=== PATIENT | male | born 1950 | race African-American/Black ===

== ENCOUNTER 2017-06-27 20:19 | Emergency (ER) | payer MEDICARE, MEDICAID ==
[2017-06-27] MEDS ORDERED: NORMAL SALINE 1000 ML 1,000 ML IV ONE (20:46)
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
[2017-06-27 21:14] LABS: ABSOLUTE EOSINOPHILS # (AUTO) 0.1 10^3/uL (0.0-0.6); ABSOLUTE LYMPHOCYTES (AUTO) 1.2 10^3/uL (0.5-4.7); ABSOLUTE MONOCYTES (AUTO) 0.3 10^3/uL (0.1-1.4); ABSOLUTE NEUT (AUTO) 2.4 10^3/uL (1.7-8.2); BASOPHILS % (AUTO) 0.8 % (0-2); EOSINOPHILS % (AUTO) 2.6 % (0-6); HEMATOCRIT 41.6 % (37.9-51.0); HEMOGLOBIN 14.2 g/dL (13.5-17.0); LYMPHOCYTES % (AUTO) 30.3 % (13-45); MEAN CORPUSCULAR HEMOGLOBIN 32.9 pg (27.0-33.4); MEAN CORPUSCULAR HGB CONC 34.1 g/dL (32.0-36.0); MEAN CORPUSCULAR VOLUME 97 fl (80-97); MONOCYTES % (AUTO) 7.5 % (3-13); RED CELL DISTRIBUTION WIDTH 13.1 % (11.5-14.0); SEGMENTED NEUTROPHILS % (AUTO) 58.8 % (42-78); WHITE BLOOD COUNT 4.1 10^3/uL (4.0-10.5)
[2017-06-27 21:27] LABS: ALANINE AMINOTRANSFERASE 20 U/L (21-72); ALBUMIN 4.6 g/dL (3.5-5.0); ALCOHOL 247 mg/dL (NONE DETECTED); ALKALINE PHOSPHATASE 49 U/L (38-126); ANION GAP 14 (5-19); ASPARTATE AMINO TRANSFERASE 28 U/L (17-59); BILIRUBIN,DIRECT 0.2 mg/dL (0.0-0.4); BILIRUBIN,TOTAL 0.4 mg/dL (0.2-1.3); BLOOD UREA NITROGEN 12 mg/dL (7-20); CALCIUM 9.6 mg/dL (8.4-10.2); CARBON DIOXIDE 26 mmol/L (22-30); CHLORIDE 101 mmol/L (98-107); CREATININE RESULT 1.21 mg/dL (0.52-1.25); GLUCOSE 97 mg/dL (75-110); POTASSIUM 4.2 mmol/L (3.6-5.0); TOTAL PROTEIN 7.3 g/dL (6.3-8.2)
== END 2017-06-28 01:30 | disposition home or self-care (01) ==
LOC: ER 20:19
DX: F10.10 Alcohol abuse, uncomplicated (principal); R55 Syncope and collapse
CPT/HCPCS: 99283; 96360; 36415; 80307; 85025; 80053; J7030

== ENCOUNTER 2017-12-12 13:02 | Emergency (ER) | payer MEDICARE, MEDICAID ==
[2017-12-12] MEDS ORDERED: ACETAMINOPHEN 325 MG TABLET PO ONE (13:12)
[2017-12-12 13:28] VITALS: BP 168/110
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
== END 2017-12-12 14:36 | disposition home or self-care (01) ==
LOC: ER 13:02
DX: M25.562 Pain in left knee (principal); M54.2 Cervicalgia; V19.9XXA Pedal cyclist (driver) (passenger) injured in unspecified traffic accident, initial encounter; F17.210 Nicotine dependence, cigarettes, uncomplicated; I25.10 Atherosclerotic heart disease of native coronary artery without angina pectoris; I10 Essential (primary) hypertension; Z88.6 Allergy status to analgesic agent
CPT/HCPCS: 99284; 73564; 72125; L0120; A9270

== ENCOUNTER 2018-07-27 16:03 | Emergency (ER) | payer MEDICARE, MEDICAID ==
[2018-07-27 16:24] VITALS: BP 117/76
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
--- NOTE | 2018-07-27 19:45 | EKG REPORT ---
SEVERITY:- NORMAL ECG - ERROR IN QTc INTERVAL CLCULATION.qtC IS NORMAL SINUS RHYTHM : Confirmed by: Carola Gaines MD 27-Jul-2018 19:44:40
== END 2018-07-27 19:21 | disposition home or self-care (01) ==
LOC: ER 16:03
DX: R07.81 Pleurodynia (principal); I10 Essential (primary) hypertension; Z88.6 Allergy status to analgesic agent; I25.10 Atherosclerotic heart disease of native coronary artery without angina pectoris
CPT/HCPCS: 93005; 93010; 99283

== ENCOUNTER 2018-09-21 22:13 | Emergency (ER) | payer MEDICARE, MEDICAID ==
[2018-09-21 23:15] LABS: ABSOLUTE EOSINOPHILS # (AUTO) 0.2 10^3/uL (0.0-0.6); ABSOLUTE LYMPHOCYTES (AUTO) 0.8 10^3/uL (0.5-4.7); ABSOLUTE MONOCYTES (AUTO) 0.6 10^3/uL (0.1-1.4); ABSOLUTE NEUT (AUTO) 2.7 10^3/uL (1.7-8.2); BASOPHILS % (AUTO) 0.7 % (0-2); EOSINOPHILS % (AUTO) 4.6 % (0-6); HEMATOCRIT 40.9 % (37.9-51.0); HEMOGLOBIN 13.9 g/dL (13.5-17.0); MEAN CORPUSCULAR HEMOGLOBIN 33.4 pg (27.0-33.4); MEAN CORPUSCULAR HGB CONC 34.1 g/dL (32.0-36.0); MEAN CORPUSCULAR VOLUME 98 fl (80-97); PLATELET COUNT 245 10^3/uL (150-450); RED BLOOD COUNT 4.17 10^6/uL (4.35-5.55); RED CELL DISTRIBUTION WIDTH 13.7 % (11.5-14.0); SEGMENTED NEUTROPHILS % (AUTO) 62.7 % (42-78); TOTAL CELLS COUNTED % (AUTO) 100 %; WHITE BLOOD COUNT 4.4 10^3/uL (4.0-10.5)
[2018-09-21 23:26] LABS: APPEARANCE,URINE CLEAR; BILIRUBIN,URINE NEGATIVE (NEGATIVE); COLOR,URINE STRAW; GLUCOSE, URINE NEGATIVE (NEGATIVE); KETONES,URINE NEGATIVE (NEGATIVE); LEUKOCYTE ESTERASE,URINE NEGATIVE (NEGATIVE); NITRITE,URINE NEGATIVE (NEGATIVE); PROTEIN,URINE NEGATIVE (NEGATIVE); URINE SPECIFIC GRAVITY 1.002; UROBILINOGEN,URINE NEGATIVE mg/dL (<2.0)
[2018-09-21 23:31] LABS: ALANINE AMINOTRANSFERASE 136 U/L (21-72); ALBUMIN 4.6 g/dL (3.5-5.0); ALKALINE PHOSPHATASE 71 U/L (38-126); ANION GAP 14 (5-19); ASPARTATE AMINO TRANSFERASE 228 U/L (17-59); BILIRUBIN,DIRECT 0.2 mg/dL (0.0-0.4); BILIRUBIN,TOTAL 0.4 mg/dL (0.2-1.3); BLOOD UREA NITROGEN 9 mg/dL (7-20); CALCIUM 9.5 mg/dL (8.4-10.2); CARBON DIOXIDE 26 mmol/L (22-30); CHLORIDE 99 mmol/L (98-107); GLUCOSE 89 mg/dL (75-110); LIPASE 115.6 U/L (23-300); POTASSIUM 4.1 mmol/L (3.6-5.0); SODIUM 138.6 mmol/L (137-145); TOTAL PROTEIN 7.9 g/dL (6.3-8.2)
[2018-09-22] MEDS ORDERED: LIDOCAINE 5% (700 MG) TRANSDERMAL ADH..PATCH TP ONE (00:29)
[2018-09-22] MEDS ORDERED: MORPHINE SULFATE 10 MG/ML INJ IM ONE (00:29)
--- NOTE | 2018-09-22 00:36 | ER Document Report ---
ED General - General Chief Complaint: Flank Pain Stated Complaint: FLANK PAIN Time Seen by Provider: 09/21/18 23:40 Mode of Arrival: Medic Information source: Patient, Emergency Med Personnel, [facility] Records Notes: 67-year-old male presents via EMS with complaint of left hip and left low back pain that has been ongoing for 3 months. Patient describes the pain as throbbing, aching and worse with laying and sitting down. Patient states that he often rides a bike and walks and reports that this improves the pain. Patient denies any headache, chest pain, nausea, vomiting, abdominal pain. He denies any recent injury, fall. He has tried [id number] pain medications without relief. He denies leg weakness, saddle anesthesia, history of IV drug abuse, fever. TRAVEL OUTSIDE OF THE [place] IN LAST 30 DAYS: No - HPI Onset: Other Onset/Duration: Intermittent Quality of pain: Throbbing Severity: Mild Associated symptoms: denies: Chest pain, Nonproductive cough, Productive cough, Headache, Hurts to breath, Nausea, Vomiting, Shortness of breath, Sweating Exacerbated by: Supine, Sitting Relieved by: Other - Moving, riding his bike Similar symptoms previously: Yes Recently seen / treated by doctor: Yes - Related Data Allergies/Adverse Reactions: aspirin [Aspirin] Allergy (Intermediate, Verified 09/21/18 22:16) Hives iodine [Iodine] Allergy (Verified 09/21/18 22:16) Past Medical History - General Information source: Patient, [facility] Records - Social History Smoking Status: Never Smoker Chew tobacco use (# tins/day): No Frequency of alcohol use: Social Drug Abuse: None Lives with: Alone Family History: Reviewed & Not Pertinent Patient has suicidal ideation: No Patient has homicidal ideation: No - Past Medical History Cardiac Medical History: Reports: Hx Coronary Artery Disease, Hx Hypercholesterolemia, Hx Hypertension Denies: Hx Heart Attack Pulmonary Medical History: Denies: Hx Asthma, Hx Bronchitis, Hx COPD, Hx Pneumonia Neurological Medical History: Reports: Hx Seizures - Possibly Renal/ Medical History: Denies: Hx Peritoneal Dialysis GI Medical History: Reports: Hx Gastroesophageal Reflux Disease Musculoskeletal Medical History: Reports Hx Arthritis Past Surgical History: Reports: Hx Orthopedic Surgery - Immunizations Hx Diphtheria, Pertussis, Tetanus Vaccination: Yes Review of Systems - Review of Systems Notes: REVIEW OF SYSTEMS: CONSTITUTIONAL : Denies fever, chills, or sweats. Denies recent illness. Denies weight loss, recent hospitalizations. EENT: Denies visual changes, eye pain. Denies sore throat, oral lesions, difficulty swallowing. CARDIOVASCULAR: Denies chest pain. Denies palpitations. Denies lower extremity edema. RESPIRATORY: Denies cough. Denies shortness of breath, wheezing. GASTROINTESTINAL: Denies abdominal pain or distention. Denies nausea, vomiting, or diarrhea. Denies blood in vomitus, stools, or per rectum. Denies black, tarry stools. Denies constipation. GENITOURINARY: Denies difficulty urinating, painful urination, frequency, blood in urine, testicular pain or penile discharge. MUSCULOSKELETAL: Denies neck pain or stiffness. SKIN: Denies rash, lesions or sores. HEMATOLOGIC : Denies easy bruising or bleeding. LYMPHATIC: Denies swollen glands. NEUROLOGICAL: Denies confusion or altered mental status. Denies loss of consciousness. Denies dizziness or lightheadedness. Denies headache. Denies weakness or paralysis. Denies problems difficulty with ambulation, slurred speech. Denies sensory loss, numbness, or tingling. Denies seizures. PSYCHIATRIC: Denies anxiety or stress. Denies depression, suicidal ideation, or Physical Exam - Vital signs Vitals: Temp Pulse Resp BP Pulse Ox 98.2 F 77 16 153/98 H 99 09/21/18 22:28 09/21/18 22:28 09/21/18 22:28 09/21/18 22:28 09/21/18 22:28 - Notes Notes: PHYSICAL EXAMINATION: GENERAL: Well-appearing, well-nourished and in no acute distress. HEAD: Atraumatic, normocephalic. EYES: Pupils equal round and reactive to light, extraocular movements intact, sclera anicteric, conjunctiva are normal. ENT: Nares patent, oropharynx clear without exudates. Moist mucous membranes. NECK: Normal range of motion, supple without lymphadenopathy LUNGS: Breath sounds clear to auscultation bilaterally and equal. No wheezes rales or rhonchi. HEART: Regular rate and rhythm without murmurs ABDOMEN: Soft, nontender, nondistended abdomen. No guarding, no rebound. No masses appreciated. Musculoskeletal: Normal range of motion, no pitting or edema. No cyanosis. Left hip with full range of motion, nontender with palpation, increased tenderness along the IT band. Mild tenderness to the left paraspinal musculature of the lumbar spine at the level of L4. No midline tenderness. 5/5 dorsi and plantar flexion. Patient ambulates without difficulty. Straight leg raise negative bilaterally. NEUROLOGICAL: Cranial nerves grossly intact. Normal speech, normal gait. Normal sensory, motor exams PSYCH: Normal mood, normal affect. SKIN: Warm, Dry, normal turgor, no rashes or lesions noted. Course - Re-evaluation Re-evalutation: 09/22/18 00:33 Laboratory 09/21/18 09/21/18 09/21/18 22:45 22:45 22:45 WBC 4.4 RBC 4.17 L Hgb 13.9 Hct 40.9 MCV 98 H MCH 33.4 MCHC 34.1 RDW 13.7 Plt Count 245 Seg Neutrophils % 62.7 Lymphocytes % 19.0 Monocytes % 13.0 Eosinophils % 4.6 Basophils % 0.7 Absolute Neutrophils 2.7 Absolute Lymphocytes 0.8 Absolute Monocytes 0.6 Absolute Eosinophils 0.2 Absolute Basophils 0.0 Sodium 138.6 Potassium 4.1 Chloride 99 Carbon Dioxide 26 Anion Gap 14 BUN 9 Creatinine 1.00 Est GFR ( Amer) > 60 Est GFR (Non-Af Amer) > 60 Glucose 89 Calcium 9.5 Total Bilirubin 0.4 Direct Bilirubin 0.2 Neonat Total Bilirubin Not Reportable Neonat Direct Bilirubin Not Reportable Neonat Indirect Bili Not Reportable AST 228 H ALT 136 H Alkaline Phosphatase 71 Total Protein 7.9 Albumin 4.6 Lipase 115.6 Urine Color STRAW Urine Appearance CLEAR Urine pH 6.0 Ur Specific [place] 1.002 Urine Protein NEGATIVE Urine Glucose (UA) NEGATIVE Urine Ketones NEGATIVE Urine Blood NEGATIVE Urine Nitrite NEGATIVE Urine Bilirubin NEGATIVE Urine Urobilinogen NEGATIVE Ur Leukocyte Esterase NEGATIVE Urine Mucus (Auto) RARE Urine Ascorbic Acid NEGATIVE Temp Pulse Resp BP Pulse Ox 98.2 F 77 16 153/98 H 99 09/21/18 22:28 09/21/18 22:28 09/21/18 22:28 09/21/18 22:28 09/21/18 22:28 Hip X-Ray 09/22/18 00:29 IMPRESSION: No acute osseous abnormality. Moderate degenerative change of the hips bilaterally copyright 2011 [employer]- All Rights Reserved Lumbar Spine X-Ray 09/22/18 00:29 IMPRESSION: Multilevel degenerative disc changes. No acute osseous abnormalities. 09/22/18 00:34 67-year-old male presents via EMS with complaint of left hip and left low back pain that has been ongoing for 3 months. Patient describes the pain as thr obbing, aching and worse with laying and sitting down. Patient states that he often rides a bike and walks and reports that this improves the pain. Patient denies any headache, chest pain, nausea, vomiting, abdominal pain. He denies any recent injury, fall. He has tried biqg-mzu-zkdnoit pain medications without relief. He denies leg weakness, saddle anesthesia, history of IV drug abuse, fever. Vital signs reviewed upon arrival and patient is mildly hypertensive. Exam is significant for tenderness with palpation to the left IT band, left paraspinal musculature of the lumbar spine without midline tenderness. Patient is able to ambulate without difficulty. Patient has no flank pain as previously documented. This is a been an ongoing event with no recent injury. CBC is without leukocytosis or anemia. Urinalysis is within normal limits. CMP ordered by provider in triage shows mildly elevated AST and ALT. Imaging of the patient's left hip and lumbar spine will be obtained. Lidocaine patch was placed on the area of tenderness and IM morphine administered 09/22/18 03:35 Patient reevaluated and is sleeping peacefully. When awoken he still reports pain. X-rays show degenerative disc disease, moderate degenerative arthritis of the left hip. Patient has normal kidney function and will be placed on low- dose Mobic for the next week. Patient was evaluated and treated as appropriate for the patient's presenting symptoms and complaint, with consideration of any critical or life threatening conditions that may be associated with their obtained history and exam as noted above. All results were discussed with patient . Patient provided the opportunity to ask questions, and express concerns. Patient was educated on treatments based on their presumed diagnosis as noted above. At this time we will discharge the patient with return precautions and follow-up recommendations. Verbal discharge instructions given a the bedside. Medication warnings reviewed. Patient is in agreement with this plan and has verbalized understanding of return precautions. After careful consideration I feel that that patient can be safely discharged from the emergency department, they were advised to followup with a primary care physician in 2-3 days. Dictation on this chart was performed using voice recognition software and may result in unintended grammatical, spelling, syntax or errors. - Vital Signs Vital signs: Temp Pulse Resp BP Pulse Ox 97.3 F 84 16 139/99 H 98 09/22/18 02:53 09/22/18 02:53 09/22/18 02:53 09/22/18 02:53 09/22/18 02:53 - Laboratory Result Diagrams: 09/21/18 22:45 09/21/18 22:45 Laboratory results interpreted by me: 09/21/18 09/21/18 22:45 22:45 RBC 4.17 L MCV 98 H AST 228 H ALT 136 H - Diagnostic Test Radiology reviewed: Image reviewed, Reports reviewed Discharge - Discharge Clinical Impression: Elevated blood pressure reading Degenerative arthritis of hip Qualifiers: Osteoarthritis type: unspecified Laterality: left Qualified Code(s): M16.12 - Unilateral primary osteoarthritis, left hip Degenerative disc disease Qualifiers: Spinal region: lumbar Qualified Code(s): M51.36 - Other intervertebral disc degeneration, lumbar region Arthralgia Qualifiers: Joint pain location: hip Laterality: left Qualified Code(s): M25.552 - Pain in left hip Condition: Good Disposition: HOME, SELF-CARE Instructions: Arthritis ([facility]), Low Back Pain ([facility]) Additional Instructions: Follow up with your [id number] hours for further care or return to the ED IMMEDIATELY if symptoms worsen or you have any concerns. If you cannot afford to follow up with your primary care physician a list of low cost clinics have been provided at the end of your discharge papers as well. Most prescribed medications have multiple side effects. The safest thing to do is when filling your prescription speak to your pharmacist regarding possible interactions with your normal home medications and over the counter medications such as Ibuprofen, Tylenol, Benadryl. If you experience any symptoms that cause you discomfort or concern you should discontinue the medication immediately and return to the emergency room or call your primary care physician. Prescriptions: Acetaminophen [Tylenol Arthritis] 650 mg PO BID #20 tablet.er Forms: Elevated Blood Pressure
[2018-09-22 02:53] VITALS: BP 139/99
--- NOTE | 2018-09-22 02:54 | RADIOLOGY REPORT (SQ) ---
EXAM DESCRIPTION: XR HIP 2 OR MORE VIEWS COMPLETED DATE/TME: 09/22/2018 00:29 CLINICAL HISTORY: 67 years, Male, pain COMPARISON: None. NUMBER OF VIEWS: 2 TECHNIQUE: AP view of the pelvis and single view left hip LIMITATIONS: None. FINDINGS: Negative for acute fracture or dislocation. Nonspecific soft tissue calcifications in the inguinal regions. Deformity of the left ilium could reflect prior trauma or procedure. Moderate degenerative change of the hips bilaterally with joint space narrowing and subchondral cyst formation. IMPRESSION: No acute osseous abnormality. Moderate degenerative change of the hips bilaterally copyright 2010 [employer]- All Rights Reserved
--- NOTE | 2018-09-22 03:02 | RADIOLOGY REPORT (SQ) ---
EXAM DESCRIPTION: XR LUMBAR SPINE ANTEROPOSTERIOR, LATERAL, AND OBLIQUES COMPLETED DATE/TME: 09/22/2018 00:29 CLINICAL HISTORY: 67 years, Male, pain COMPARISON: None. FINDINGS: No fracture or dislocation. The disc spaces are relatively well-preserved. There are bridging syndesmophytes on the left lower thoracic spine through L3. Mild multilevel facet arthropathy. Soft tissues are unremarkable. IMPRESSION: Multilevel degenerative disc changes. No acute osseous abnormalities.
== END 2018-09-22 03:58 | disposition home or self-care (01) ==
LOC: ER 22:13
DX: M16.12 Unilateral primary osteoarthritis, left hip (principal); M51.36 Other intervertebral disc degeneration, lumbar region; M25.552 Pain in left hip; I10 Essential (primary) hypertension; R10.9 Unspecified abdominal pain; I25.10 Atherosclerotic heart disease of native coronary artery without angina pectoris; E78.00 Pure hypercholesterolemia, unspecified; Z88.6 Allergy status to analgesic agent
CPT/HCPCS: 99284; 96372; 36415; 83690; 85025; 80053; 81001; 73502; 72110; J2270

== ENCOUNTER 2018-12-14 10:27 | Emergency (ER) | payer MEDICARE, MEDICAID ==
[2018-12-14 10:59] LABS: ABSOLUTE EOSINOPHILS # (AUTO) 0.3 10^3/uL (0.0-0.6); ABSOLUTE LYMPHOCYTES (AUTO) 1.4 10^3/uL (0.5-4.7); ABSOLUTE MONOCYTES (AUTO) 0.3 10^3/uL (0.1-1.4); ABSOLUTE NEUT (AUTO) 1.9 10^3/uL (1.7-8.2); BASOPHILS % (AUTO) 0.6 % (0-2); EOSINOPHILS % (AUTO) 6.5 % (0-6); HEMATOCRIT 40.4 % (37.9-51.0); HEMOGLOBIN 13.6 g/dL (13.5-17.0); LYMPHOCYTES % (AUTO) 35.9 % (13-45); MEAN CORPUSCULAR HEMOGLOBIN 32.4 pg (27.0-33.4); MEAN CORPUSCULAR HGB CONC 33.7 g/dL (32.0-36.0); MEAN CORPUSCULAR VOLUME 96 fl (80-97); MONOCYTES % (AUTO) 8.4 % (3-13); PLATELET COUNT 415 10^3/uL (150-450); RED BLOOD COUNT 4.21 10^6/uL (4.35-5.55); RED CELL DISTRIBUTION WIDTH 12.7 % (11.5-14.0); SEGMENTED NEUTROPHILS % (AUTO) 48.6 % (42-78); TOTAL CELLS COUNTED % (AUTO) 100 %
[2018-12-14 11:18] LABS: ALANINE AMINOTRANSFERASE 23 U/L (21-72); ALBUMIN 4.3 g/dL (3.5-5.0); ALKALINE PHOSPHATASE 69 U/L (38-126); ANION GAP 16 (5-19); ASPARTATE AMINO TRANSFERASE 50 U/L (17-59); BILIRUBIN,DIRECT 0.3 mg/dL (0.0-0.4); BILIRUBIN,TOTAL 0.5 mg/dL (0.2-1.3); BLOOD UREA NITROGEN 9 mg/dL (7-20); CALCIUM 9.1 mg/dL (8.4-10.2); CARBON DIOXIDE 25 mmol/L (22-30); CHLORIDE 101 mmol/L (98-107); GLUCOSE 80 mg/dL (75-110); POTASSIUM 4.8 mmol/L (3.6-5.0); SODIUM 141.9 mmol/L (137-145); TOTAL PROTEIN 7.5 g/dL (6.3-8.2)
[2018-12-14 11:29] LABS: ACETAMINOPHEN < 10 ug/mL (10-30); SALICYLATE < 1.0 mg/dL (2.0-20.0)
[2018-12-14 11:30] LABS: ALCOHOL 360 mg/dL (NONE DETECTED)
--- NOTE | 2018-12-14 12:07 | RADIOLOGY REPORT (SQ) ---
EXAM DESCRIPTION: CT CERVICAL SPINE WITHOUT COMPLETED DATE/TIME: 12/14/2018 11:55 am REASON FOR STUDY: found down, combative COMPARISON: 12/12/2017 TECHNIQUE: Axial images acquired through the cervical spine without intravenous contrast. Images re viewed with lung, soft tissue and bone windows. Reconstructed coronal and sagittal MPR images review ed. Images stored on PACS. All CT scanners at this facility use dose modulation, iterative reconstruction, and/or weight based d osing when appropriate to reduce radiation dose to as low as reasonably achievable (ALARA). [facility]: Dose Right [facility]: CareDose [facility]: Dose Right [facility]: Teradose 4D [facility]: Smart [employer] RADIATION DOSE: CT Rad equipment meets quality standard of care and radiation dose reduction techniq ues were employed. CTDIvol: 17.4 mGy. DLP: 366 mGy-cm. mGy. LIMITATIONS: None. FINDINGS: ALIGNMENT: Anatomic. MINERALIZATION: Normal. VERTEBRAL BODIES: No fractures or dislocation. DISCS: Multilevel DISH with multilevel ankylosis of the cervical spine. FACETS, LATERAL MASSES, POSTERIOR ELEMENTS: Multilevel facet degenerative disease. No fractures. No dislocation. No acute findings. HARDWARE: None in the spine. VISUALIZED RIBS: No fractures. LUNG APICES AND SOFT TISSUES: No significant or acute findings. OTHER: No other significant finding. IMPRESSION: No fracture or static subluxation of the cervical spine. Cervical DISH. TECHNICAL DOCUMENTATION: JOB ID: [id number] Quality ID # [id number]: Final reports with documentation of one or more dose reduction techniques (e.g., Au tomated exposure control, adjustment of the mA and/or kV according to patient size, use of iterative reconstruction technique) 2010 [employer]- All Rights Reserved Reading location - IP/workstation name: [email or web address]
--- NOTE | 2018-12-14 12:10 | RADIOLOGY REPORT (SQ) ---
EXAM DESCRIPTION: CT HEAD WITHOUT COMPLETED DATE/TIME: 12/14/2018 11:56 am REASON FOR STUDY: found down, combative COMPARISON: CT brain, 03/13/2016 TECHNIQUE: Axial images acquired through the brain without intravenous contrast. Images reviewed wi th bone, brain and subdural windows. Additional sagittal and coronal reconstructions were generated. Images stored on PACS. All CT scanners at this facility use dose modulation, iterative reconstruction, and/or weight based d osing when appropriate to reduce radiation dose to as low as reasonably achievable (ALARA). [facility]: Dose Right [facility]: CareDose [facility]: Dose Right [facility]: Teradose 4D [facility]: Smart [employer] RADIATION DOSE: CT Rad equipment meets quality standard of care and radiation dose reduction techniq ues were employed. CTDIvol: 53.2 mGy. DLP: 1097 mGy-cm. mGy. LIMITATIONS: None. FINDINGS: VENTRICLES: Normal size and contour. CEREBRUM: No masses. No hemorrhage. No midline shift. No evidence for acute infarction. Normal gra y/white matter differentiation. No areas of low density in the white matter. CEREBELLUM: No masses. No hemorrhage. No alteration of density. No evidence for acute infarction. EXTRAAXIAL SPACES: No fluid collections. No masses. ORBITS AND GLOBE: No intra- or extraconal masses. Normal contour of globe without masses. CALVARIUM: No fracture. PARANASAL SINUSES: No fluid or mucosal thickening. Redemonstrated opacification of the left frontal sinus with overlying postsurgical findings SOFT TISSUES: No mass or hematoma. OTHER: No other significant finding. IMPRESSION: No acute intracranial pathology. EVIDENCE OF ACUTE STROKE: NO. COMMENT: Quality ID # [id number]: Final reports with documentation of one or more dose reduction techniques (e.g., Automated exposure control, adjustment of the mA and/or kV according to patient size, use of iterative reconstruction technique) TECHNICAL DOCUMENTATION: JOB ID: [id number] [employer]- All Rights Reserved Reading location - IP/workstation name: [email or web address]
--- NOTE | 2018-12-14 12:16 | RADIOLOGY REPORT (SQ) ---
EXAM DESCRIPTION: CHEST SINGLE VIEW COMPLETED DATE/TIME: 12/14/2018 12:04 pm REASON FOR STUDY: found down, combative COMPARISON: Chest films 01/03/2014, 01/13/2013 EXAM PARAMETERS: NUMBER OF VIEWS: One view. TECHNIQUE: Single frontal radiographic view of the chest acquired. RADIATION DOSE: NA LIMITATIONS: None. FINDINGS: LUNGS AND PLEURA: No opacities, masses or pneumothorax. No pleural effusion. MEDIASTINUM AND HILAR STRUCTURES: No masses. Contour normal. HEART AND VASCULAR STRUCTURES: Heart normal in size. Normal vasculature. BONES: No acute findings. HARDWARE: None in the chest. OTHER: No other significant finding. IMPRESSION: NO ACUTE RADIOGRAPHIC FINDING IN THE CHEST. TECHNICAL DOCUMENTATION: JOB ID: [id number]- All Rights Reserved Reading location - IP/workstation name: [email or web address]
--- NOTE | 2018-12-14 12:32 | RADIOLOGY REPORT (SQ) ---
EXAM DESCRIPTION: SHOULDER RIGHT 2 OR MORE VIEWS COMPLETED DATE/TIME: 12/14/2018 12:19 pm REASON FOR STUDY: crepitus and pain COMPARISON: None. NUMBER OF VIEWS: Three views. TECHNIQUE: Internal rotation, external rotation, and Y view images acquired of the right shoulder. LIMITATIONS: None. FINDINGS: MINERALIZATION: Normal. BONES: No acute fracture or dislocation. No worrisome bone lesions. JOINTS: No dislocation. Moderate right acromioclavicular arthrosis. Mild glenohumeral arthrosis and a relatively high riding position of the humerus, suggesting chronic rotator cuff tear. VISUALIZED LUNGS AND RIBS: No pneumothorax. No rib fracture. SOFT TISSUES: No radiopaque foreign body. OTHER: No other significant finding. IMPRESSION: No fracture or dislocation of the right shoulder. Moderate right acromioclavicular arthr osis. Mild glenohumeral arthrosis and a relatively high riding position of the humerus, suggesting c hronic rotator cuff tear. TECHNICAL DOCUMENTATION: JOB ID: [id number] [employer]- All Rights Reserved Reading location - IP/workstation name: [email or web address]
--- NOTE | 2018-12-14 12:53 | EKG REPORT ---
SEVERITY:- NORMAL ECG - SINUS RHYTHM : Confirmed by: Garrett Woodard MD 14-Dec-2018 12:52:57
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
== END 2018-12-14 13:36 | disposition home or self-care (01) ==
LOC: ER 10:27
DX: R55 Syncope and collapse (principal); R07.9 Chest pain, unspecified; R41.82 Altered mental status, unspecified; F10.920 Alcohol use, unspecified with intoxication, uncomplicated; Z88.6 Allergy status to analgesic agent; Z78.1 Physical restraint status
CPT/HCPCS: 36415; 70450; 71045; 72125; 80053; 80307; 84484; 85025; 93005; 93010; 99285

== ENCOUNTER 2019-07-14 16:03 | Emergency (ER) | payer MEDICARE, MEDICAID ==
[2019-07-14 17:10] VITALS: BP 162/101
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
[2019-07-14 18:34] LABS: ABSOLUTE EOSINOPHILS # (AUTO) 0.2 10^3/uL (0.0-0.6); ABSOLUTE MONOCYTES (AUTO) 0.2 10^3/uL (0.1-1.4); ABSOLUTE NEUT (AUTO) 1.9 10^3/uL (1.7-8.2); BASOPHILS % (AUTO) 0.8 % (0-2); EOSINOPHILS % (AUTO) 4.9 % (0-6); HEMATOCRIT 44.4 % (37.9-51.0); HEMOGLOBIN 14.9 g/dL (13.5-17.0); LYMPHOCYTES % (AUTO) 30.1 % (13-45); MEAN CORPUSCULAR HEMOGLOBIN 32.9 pg (27.0-33.4); MEAN CORPUSCULAR HGB CONC 33.7 g/dL (32.0-36.0); MEAN CORPUSCULAR VOLUME 98 fl (80-97); MONOCYTES % (AUTO) 6.1 % (3-13); PLATELET COUNT 331 10^3/uL (150-450); RED BLOOD COUNT 4.55 10^6/uL (4.35-5.55); RED CELL DISTRIBUTION WIDTH 13.5 % (11.5-14.0); SEGMENTED NEUTROPHILS % (AUTO) 58.1 % (42-78); TOTAL CELLS COUNTED % (AUTO) 100 %; WHITE BLOOD COUNT 3.3 10^3/uL (4.0-10.5)
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
[2019-07-14 18:42] LABS: INTERNATIONAL RATION (INR) 0.98
[2019-07-14 18:43] LABS: PARTIAL THROMBOPLASTIN TIME 31.7 SEC (23.5-35.8)
[2019-07-14 18:54] LABS: ALBUMIN 4.9 g/dL (3.5-5.0); ALCOHOL 243 mg/dL (NONE DETECTED); ALKALINE PHOSPHATASE 80 U/L (38-126); ANION GAP 11 (5-19); ASPARTATE AMINO TRANSFERASE 38 U/L (17-59); BILIRUBIN,DIRECT 0.2 mg/dL (0.0-0.4); BILIRUBIN,TOTAL 0.4 mg/dL (0.2-1.3); BLOOD UREA NITROGEN 8 mg/dL (7-20); CALCIUM 9.3 mg/dL (8.4-10.2); CARBON DIOXIDE 29 mmol/L (22-30); CHLORIDE 100 mmol/L (98-107); GLUCOSE 90 mg/dL (75-110); POTASSIUM 4.6 mmol/L (3.6-5.0); TOTAL PROTEIN 8.4 g/dL (6.3-8.2)
[2019-07-14 18:55] LABS: SALICYLATE < 1.0 mg/dL (2.0-20.0)
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
--- NOTE | 2019-07-14 22:02 | EKG REPORT ---
SEVERITY:- ABNORMAL ECG - SINUS RHYTHM PROBABLE LEFT ATRIAL ABNORMALITY LEFT VENTRICULAR HYPERTROPHY ANTERIOR ST ELEVATION, PROBABLY DUE TO LVH : Confirmed by: Ysabel Aj 14-Jul-2019 22:01:33
== END 2019-07-14 23:18 | disposition left against medical advice (07) ==
LOC: ER 16:03
DX: R40.4 Transient alteration of awareness (principal); R06.02 Shortness of breath; R07.9 Chest pain, unspecified; W01.0XXA Fall on same level from slipping, tripping and stumbling without subsequent striking against object, initial encounter; Y92.007 Garden or yard of unspecified non-institutional (private) residence as the place of occurrence of the external cause; I25.10 Atherosclerotic heart disease of native coronary artery without angina pectoris; E78.00 Pure hypercholesterolemia, unspecified; I10 Essential (primary) hypertension; Z88.6 Allergy status to analgesic agent
CPT/HCPCS: 36415; 70450; 71045; 72125; 80053; 80307; 84484; 85025; 85610; 85730; 93005; 93010; 99281

== ENCOUNTER 2020-03-05 16:32 | Emergency (ER) | payer MEDICARE, MEDICAID ==
[2020-03-05 17:10] LABS: HEMATOCRIT 39.3 % (37.9-51.0); HEMOGLOBIN 13.4 g/dL (13.5-17.0); LYMPHOCYTES % (AUTO) 29.7 % (13-45); MEAN CORPUSCULAR HEMOGLOBIN 33.6 pg (27.0-33.4); MEAN CORPUSCULAR VOLUME 99 fl (80-97); MONOCYTES % (AUTO) 9.5 % (3-13); PLATELET COUNT 251 10^3/uL (150-450); RED BLOOD COUNT 3.98 10^6/uL (4.35-5.55); RED CELL DISTRIBUTION WIDTH 14.4 % (11.5-14.0); SEGMENTED NEUTROPHILS % (AUTO) 57.2 % (42-78); WHITE BLOOD COUNT 3.5 10^3/uL (4.0-10.5)
[2020-03-05 17:11] LABS: ABSOLUTE EOSINOPHILS # (AUTO) 0.1 10^3/uL (0.0-0.6); ABSOLUTE MONOCYTES (AUTO) 0.3 10^3/uL (0.1-1.4); BASOPHILS % (AUTO) 0.6 % (0-2); TOTAL CELLS COUNTED % (AUTO) 100 %
[2020-03-05 17:32] LABS: ALBUMIN 4.6 g/dL (3.5-5.0); ALKALINE PHOSPHATASE 68 U/L (38-126); ANION GAP 13 (5-19); ASPARTATE AMINO TRANSFERASE 135 U/L (17-59); BILIRUBIN,DIRECT 0.3 mg/dL (0.0-0.4); BILIRUBIN,TOTAL 0.9 mg/dL (0.2-1.3); BLOOD UREA NITROGEN 6 mg/dL (7-20); CALCIUM 9.1 mg/dL (8.4-10.2); CARBON DIOXIDE 21 mmol/L (22-30); CHLORIDE 101 mmol/L (98-107); GLUCOSE 92 mg/dL (75-110); POTASSIUM 4.4 mmol/L (3.6-5.0); TOTAL PROTEIN 7.2 g/dL (6.3-8.2)
[2020-03-05] MEDS ORDERED: LORAZEPAM 1 MG TABLET PO PRN (20:16)
--- NOTE | 2020-03-05 20:17 | ER Document Report ---
ED General - General TRAVEL OUTSIDE OF THE [place] IN LAST 30 DAYS: No <WILMER LERMA - Last Filed: 03/05/20 20:30> <SOILA GARCES - Last Filed: 03/06/20 13:07> <ONEIDA HARMAN - Last Filed: 03/06/20 13:27> - General Chief Complaint: ETOH Abuse Stated Complaint: ETOH Time Seen by Provider: 03/05/20 18:38 Primary Care Provider: [facility] [Outside] - Follow up as needed Notes: 69 year old male presents to the ED stating that he has been off of his medication for his high blood pressure and his depression for several months and he would like to get restarted on his medications. Patient states that he has trouble sleeping because sometimes he sees ghosts and other things while he is trying to sleep. Patient states that he drinks four to five 32 ounce beers a day in an effort to sleep better and no longer see things when he tries to go to sleep. Patient also notes that he has been thinking about hurting himself by cutting himself with multiple knives that are in his house. Currently states that what is stopping him from hurting himself is God however he has recently stopped going to [employer] and feels like does not support him like he used to. Patient does note that he has previously tried to quit drinking but when he is tried to do this he ends up with withdrawals, hallucinations and "falling out and laying on the floor. Family notes that he will not respond for hours at a time when he quits drinking. No specific report of seizures. Patient has no interest in assistance with quitting drinking at this time. States that if he wants to quit drinking he would rather do it on his own then go to a facility. (WILMER LERMA) - Related Data Allergies/Adverse Reactions: aspirin [Aspirin] Allergy (Intermediate, Verified 09/21/18 22:16) Hives iodine [Iodine] Allergy (Verified 09/21/18 22:16) Past Medical History - General Information source: Patient, Relative - Social History Smoking Status: Never Smoker Frequency of alcohol use: None Family History: Reviewed & Not Pertinent Patient has homicidal ideation: No - Past Medical History Cardiac Medical History: Reports: Hx Coronary Artery Disease, Hx Hypercholesterolemia, Hx Hypertension Denies: Hx Heart Attack Pulmonary Medical History: Denies: Hx Asthma, Hx Bronchitis, Hx COPD, Hx Pneumonia Neurological Medical History: Reports: Hx Seizures - Possibly Renal/ Medical History: Denies: Hx Peritoneal Dialysis GI Medical History: Reports: Hx Gastroesophageal Reflux Disease Musculoskeletal Medical History: Reports Hx Arthritis Past Surgical History: Reports: Hx Orthopedic Surgery - Immunizations Hx Diphtheria, Pertussis, Tetanus Vaccination: Yes <WILMER LERMA - Last Filed: 03/05/20 20:30> Review of Systems - Review of Systems Constitutional: No symptoms reported EENT: No symptoms reported Cardiovascular: No symptoms reported Neurological/Psychological: See HPI, Depression, Hallucinations - Seeing ghosts when he tries to sleep. -: Yes All other systems reviewed and negative <WILMER LERMA - Last Filed: 03/05/20 20:30> Physical Exam - Vital signs Interpretation: Hypertensive <WILMER LERMA - Last Filed: 03/05/20 20:30> - Vital signs Vitals: Temp Pulse Resp BP Pulse Ox 99.7 F 90 18 168/103 H 95 03/05/20 16:38 03/05/20 16:38 03/05/20 16:38 03/05/20 16:38 03/05/20 16:38 - Notes Notes: GENERAL: Alert, interacts well. No acute distress. HEAD: Normocephalic, atraumatic EYES: Right pupil is round and reactive, extraocular movements are intact on the right, left eye appears to have been enucleated. ENT: Oral mucosa moist, tongue midline. NECK: Full range of motion, supple, trachea midline. LUNGS: Clear to auscultation bilaterally, no wheezes, rales or rhonchi, no respiratory distress. HEART: Regular rate and rhythm, no murmurs, gallops, rubs. ABDOMEN: Soft, nontender, nondistended, bowel sounds present in all 4 quadrants. EXTREMITIES: Moves all 4 extremities spontaneously, no edema. No cyanosis. NEUROLOGICAL: Alert and oriented x3, normal speech, no facial droop, biceps and patellar DTRs 2+ bilaterally. PSYCH: Currently tearful when discussing drinking and depression. SKIN: Warm, Dry, normal turgor. (WILMER LERMA) Course - Laboratory Result Diagrams: 03/05/20 16:58 03/05/20 16:58 <WILMER LERMA - Last Filed: 03/05/20 20:30> - Laboratory Result Diagrams: 03/05/20 16:58 03/05/20 16:58 <SOILA GARCES - Last Filed: 03/06/20 13:07> - Laboratory Result Diagrams: 03/05/20 16:58 03/05/20 16:58 <ONEIDA HARMAN Vern - Last Filed: 03/06/20 13:27> - Re-evaluation Re-evalutation: 03/05/20 20:35 CBC shows slightly low white blood cell count at 3.5, mild anemia with hemoglobin 13.4, platelets normal, sodium slightly low at 134.5 consistent with how much beer he drinks on a regular basis, CO2 slightly low, no kidney failure, AST and ALT both mildly elevated but not surprisingly given his alcohol history. Serum alcohol level is 316. Urine drug screen is pending. CT scan of the head was ordered given his age, history of alcoholism and his hallu cinations of ghosts when he tries to fall asleep. Behavioral health has been consulted, they will see him in the morning when he is sober. [facility]'s protocol with Ativan as needed has been ordered. Patient will be monitored closely for signs of alcohol withdrawal and treated with Ativan 2 mg by mouth every hour as needed for signs of withdrawal. Patient has also been reordered his home within simvastatin as well as some blood pressure medication however when I review his blood pressure medication he was previously taking quite a bit, has not had this in several months and his blood pressure is only 163 systolic. I am initially starting only with losartan, we can add medications from there. 03/05/20 20:37 Patient has been placed on a 24-hour hold so that he may be reevaluated by behavioral health and medical staff when he is sober. (WILMER LERMA) 03/06/20 09:12 I reviewed the patient's lab work which is nonactionable, alcohol was 316 on initial presentation. Patient's vital signs still show mild hypertension he has blood pressure medications ordered. He is on [facility]WA protocol. Awaiting psychiatric evaluation 03/06/20 13:25 Patient has been evaluated by the psychiatric team. He is declining referral over to [facility] for alcoholism. States he will take a phone call to talk to them about it. He has been out of his blood pressure medication for quite some time. Patient sister is in the room who is also answering questions about his medical issues. She has requested to speak to Malachi from the psychiatric team prior to discharge. Patient is alert and oriented answering questions appropriately, states that he does not want to be admitted or sent over to [facility] to treat his alcoholism (ONEIDA HARMAN) - Vital Signs Vital signs: Temp Pulse Resp BP Pulse Ox 97.9 F 95 14 167/107 H 94 03/06/20 05:46 03/06/20 08:06 03/06/20 08:06 03/06/20 08:06 03/06/20 08:06 - Laboratory Laboratory results interpreted by me: 03/05/20 03/05/20 03/05/20 16:58 16:58 16:58 WBC 3.5 L RBC 3.98 L Hgb 13.4 L MCV 99 H MCH 33.6 H RDW 14.4 H Sodium 134.5 L Carbon Dioxide 21 L BUN 6 L AST 135 H ALT 79 H Serum Alcohol 316 H* Discharge <WILMER LERMA - Last Filed: 03/05/20 20:30> <SOILA GARCES - Last Filed: 03/06/20 13:07> <ONEIDA HARMAN - Last Filed: 03/06/20 13:27> - Discharge Clinical Impression: Suicidal ideation, Alcohol abuse, Noncompliance with medication regimen Hypertension Qualifiers: Hypertension type: essential hypertension Qualified Code(s): I10 - Essential (primary) hypertension Condition: Stable Disposition: HOME, SELF-CARE Additional Instructions: You have been evaluated both medical and behavioral health teams have been deemed appropriate for discharge. A referral for peer support has been submitted for you. You are highly encouraged to discuss with them substance abuse treatment. You provided local resource list of area providers including mobile crisis contact information and detox facilities in case you change your mind and would like to detox from alcohol. ACUTE ALCOHOL INTOXICATION and ALCOHOL ABUSE: Your evaluation revealed very high levels of alcohol. You can from drinking a large amount of alcohol rapidly! Further, there's the risk of falls, traffic accidents, and fights. A high portion (about 50 percent) of the serious injuries seen in hospital emergency rooms are caused by alcohol. Alcohol overdosage is usually due to an underlying emotional or psychiatric problem. You may benefit from counselling. If "binge" drinking is an ongoing problem for you, or if you drink ANY AMOUNT of alcohol EVERY day, you most likely have a tendency to alcoholism. You should avoid alcohol totally. We can refer you for treatment. Persons with alcohol problems are often also prone to other addictions -- you should discuss any use of medications or drugs with the doctor. You should be watched at home for the next several hours by someone who has not been drinking. Get extra fluids for the next 24 hours. Call the doctor if there is repeated vomiting, increasing headache, decreasing level of alertness, or any other worsening. CHRONIC ALCOHOLISM and ALCOHOL ABUSE: Your evaluation reveals evidence of chronic alcoholism, an addiction to alcohol. The tendency to alcoholism may be inherited. Chronic use of alcohol weakens muscles, causes fatty deposits in the liver, damages the stomach, makes you more prone to infections, and can cause defects in unborn children. In the long run, brain atrophy and cirrhosis of the liver result. You are also at greater risk for certain types of cancer, such as cancer of the mouth, throat, stomach, and liver. Counselling services are available to help you. In-hospital treatment programs often help. Support groups such as Alcoholics Anonymous can be very useful in beating this addiction. Your physician can make a referral for you. As alcoholics often are prone to other addictions, you should discuss your use of any other medications with the doctor. ALCOHOL WITHDRAWAL: Your symptoms are caused by alcohol withdrawal. After a period of frequent drinking, the brain and body are changed by the alcohol. When you quit or reduce your drinking, the nervous system becomes unstable. Withdrawal symptoms can start a few hours after your last drink, but sometimes don't begin until a couple of days later. Symptoms can include shakiness, sweating, insomnia, nausea, vomiting, fearfulness, hallucinations, and seizures. In addition to the acute effects of alcohol withdrawal, we often have to deal with the medical effects of alcoholism. These problems often include dehydration, stomach irritation, intestinal bleeding, low blood sugar, liver disease, and pancreas inflammation. Treatment for alcohol withdrawal includes mild sedatives, vitamins, and fluids. You need to be with someone who can help if symptoms become severe. Many patients can withdraw at home. Admission to the hospital or a detox facility may be necessary if withdrawal symptoms are severe and uncontrollable. Abstaining from alcohol is the only effective long-term treatment. If you start drinking again, you will not be able to control yourself after the first drink. Treatment programs are available. In addition, many alcoholics benefit from Alcoholics Anonymous or other support groups available through your counselor or [employer]ental orth[employer] technician automatic. [facility] and [facility] are support groups for friends and family members of an alcoholic. Go to the emergency room if you develop persistent vomiting, severe abdominal pain, fever, shortness of breath, hallucinations, uncontrollable tremors, or seizures. DEPRESSION: Your evaluation reveals that you have mental depression. While symptoms may be vague, they often include disturbance of sleep, fatigue, loss of appetite, and general loss of interest in life. While depression may be a side effect of drugs, or a reaction to a major change in your life, many cases have no known cause. If depression is acute, and related to a major loss in your life, you can expect it to clear completely with time. If you have been depressed a long time , are prone to repeated bouts of depression or low mood, or have been thinking of suicide, get help. Depression can be treated with anti-depressant medication and counselling. Long-term depression will often take a few weeks to clear, even with appropriate medication. Follow-up care is important. SUICIDAL IDEATION: Suicidal ideation is a common medical term for thoughts about suicide, which may be as detailed as a formulated plan, without the suicidal act itself. Although most people who undergo suicidal ideation do not commit suicide, some go on to make suicide attempts. The range of suicidal ideation varies greatly from fleeting to detailed planning, role playing, and unsuccessful attempts. While thoughts about suicide are common, most people do not carry out serious actions to commit suicide. Based upon your evaluation and discussion with you, we do not believe you are currently at risk to act upon your thoughts of suicide. You have agreed to return to the Emergency Department, at any time, if you feel inclined to act upon your suicidal thoughts. FOLLOW-UP CARE: If you have been referred to a physician for follow-up care, call the physicians office for an appointment as you were instructed or within the next two days. If you experience worsening or a significant change in your symptoms, notify the physician immediately or return to the Emergency Department at any time for re-evaluation. Prescriptions: Losartan Potassium 100 mg PO DAILY #30 tablet Referrals: [facility] [Outside] - Follow up as needed
--- NOTE | 2020-03-05 21:25 | RADIOLOGY REPORT (SQ) ---
EXAM DESCRIPTION: CT HEAD WITHOUT IV CONTRAST COMPLETED DATE/TME: 03/05/2020 20:17 CLINICAL HISTORY: 69 years, Male, depression, visual hallucinations EXAM DESCRIPTION: CLINICAL HISTORY: depression, visual hallucinations COMPARISON: 07/14/2019 TECHNIQUE: Contiguous axial CT images of the head were obtained. Coronal and sagittal reconstructions were created from the axial data. This exam was performed according to our departmental dose-optimization program, which includes automated exposure control, adjustment of the mA and/or kV according to patient size and/or use of iterative reconstruction technique. FINDINGS: Heterogeneous attenuation and postsurgical changes of the left frontal bone is stable in appearance. There is no evidence of acute mass, mass effect, midline shift or hemorrhage. The ventricles and extra-axial CSF spaces are unremarkable. The brain parenchyma appears normal for the patient's age. No acute abnormalities of the bones is seen. IMPRESSION: No acute intracranial abnormality.
[2020-03-05 21:42] LABS: URINE AMPHETAMINES SCREEN NEGATIVE; URINE BARBITURATES SCREEN NEGATIVE; URINE BENZODIAZEPINES SCREEN NEGATIVE; URINE COCAINE SCREEN NEGATIVE; URINE MARIJUANA (THC) SCREEN NEGATIVE; URINE METHADONE SCREEN NEGATIVE; URINE PHENCYCLIDINE SCREEN NEGATIVE
[2020-03-06] MEDS ORDERED: LOSARTAN POTASSIUM 50 MG TABLET PO ONE (06:15)
--- NOTE | 2020-03-06 06:37 | EKG REPORT ---
SEVERITY:- ABNORMAL ECG - SINUS RHYTHM ABNORMAL T, CONSIDER ISCHEMIA, LATERAL LEADS : Confirmed by: Garrett Woodard MD 06-Mar-2020 06:36:20
[2020-03-06] MEDS ORDERED: LOSARTAN POTASSIUM 50 MG TABLET PO SCH (10:00)
[2020-03-06] MEDS ORDERED: SIMVASTATIN 10 MG TABLET PO SCH (10:00)
[2020-03-06] MEDS ORDERED: CLONIDINE HCL 0.1 MG TABLET PO ONE (13:35)
[2020-03-06 13:38] VITALS: BP 186/131
[2020-03-07] MEDS ORDERED: LOSARTAN POTASSIUM 50 MG TABLET PO SCH (10:00)
== END 2020-03-06 13:43 | disposition home or self-care (01) ==
LOC: ER 16:32
DX: R45.851 Suicidal ideations (principal); I10 Essential (primary) hypertension; F10.10 Alcohol abuse, uncomplicated; Z91.14 Patient's other noncompliance with medication regimen; I25.10 Atherosclerotic heart disease of native coronary artery without angina pectoris
CPT/HCPCS: 93005; 99285; 36415; 80307 ×2; 85025; 80053; 70450; 93010; A9270 ×4

== ENCOUNTER 2020-03-26 18:24 | Emergency (ER) | payer MEDICARE, MEDICAID ==
--- NOTE | 2020-03-26 20:22 | ER Document Report ---
ED Medical Screen (RME) - General Chief Complaint: Altered Mental Status Stated Complaint: PAIN ALL OVER Time Seen by Provider: 03/26/20 20:15 Mode of Arrival: Wheelchair Information source: Patient Notes: HPI; 69-year-old male presents the emergency room via EMS after having a syncopal episode. Patient states he was walking home with his bike and he woke up next to the dumpster with EMS at his side. Per family he has been having multiple syncopal episodes over the past several months. Patient does admit to drinking 1 beer earlier today. PE: Patient is alert and oriented x3. Lungs: Clear to auscultation without rales, rhonchi, wheezes. Heart: Regular rate rhythm without murmurs, rubs, gallops. I have greeted and performed a rapid initial assessment of this patient. A comprehensive ED assessment and evaluation of the patient, analysis of test results and completion of the medical decision making process will be conducted by additional ED providers. I have specifically instructed the patient or family members with the patient to immediately return to any nursing staff should anything change in the patient's condition or with their chief complaint. TRAVEL OUTSIDE OF THE [place] IN LAST 30 DAYS: No - Related Data Allergies/Adverse Reactions: aspirin [Aspirin] Allergy (Intermediate, Verified 03/26/20 20:14) Hives iodine [Iodine] Allergy (Verified 03/26/20 20:14) Past Medical History - Social History Frequency of alcohol use: Heavy Drug Abuse: None Family history: None - Past Medical History Cardiac Medical History: Reports: Hx Coronary Artery Disease, Hx Hypercholesterolemia, Hx Hypertension Denies: Hx Heart Attack Pulmonary Medical History: Denies: Hx Asthma, Hx Bronchitis, Hx COPD, Hx Pneumonia Neurological Medical History: Reports: Hx Seizures - Possibly Renal/ Medical History: Denies: Hx Peritoneal Dialysis GI Medical History: Reports: Hx Gastroesophageal Reflux Disease Musculoskeltal Medical History: Reports Hx Arthritis Past Surgical History: Reports: Hx Orthopedic Surgery - Immunizations Hx Diphtheria, Pertussis, Tetanus Vaccination: Yes Physical Exam - Vital signs Vitals: Temp Pulse Resp BP Pulse Ox 97.9 F 72 20 174/110 H 98 03/26/20 18:32 03/26/20 18:32 03/26/20 18:32 03/26/20 18:32 03/26/20 18:32 Course - Vital Signs Vital signs: Temp Pulse Resp BP Pulse Ox 97.9 F 72 20 174/110 H 98 03/26/20 18:32 03/26/20 18:32 03/26/20 18:32 03/26/20 18:32 03/26/20 18:32
[2020-03-26] MEDS ORDERED: HYDROCHLOROTHIAZIDE 25 MG TABLET PO ONE (20:25)
[2020-03-26 21:20] LABS: ABSOLUTE LYMPHOCYTES (AUTO) 0.7 10^3/uL (0.5-4.7); ABSOLUTE MONOCYTES (AUTO) 0.2 10^3/uL (0.1-1.4); ABSOLUTE NEUT (AUTO) 2.9 10^3/uL (1.7-8.2); MEAN CORPUSCULAR VOLUME 98 fl (80-97); MONOCYTES % (AUTO) 4.7 % (3-13); TOTAL CELLS COUNTED % (AUTO) 100 %; WHITE BLOOD COUNT 3.8 10^3/uL (4.0-10.5)
[2020-03-26 21:31] LABS: BASOPHILS % (AUTO) 0.7 % (0-2); EOSINOPHILS % (AUTO) 1.1 % (0-6); HEMATOCRIT 38.6 % (37.9-51.0); HEMOGLOBIN 13.2 g/dL (13.5-17.0); LYMPHOCYTES % (AUTO) 17.9 % (13-45); MEAN CORPUSCULAR HEMOGLOBIN 33.5 pg (27.0-33.4); MEAN CORPUSCULAR HGB CONC 34.1 g/dL (32.0-36.0); PLATELET COUNT 241 10^3/uL (150-450); RED BLOOD COUNT 3.93 10^6/uL (4.35-5.55); RED CELL DISTRIBUTION WIDTH 14.1 % (11.5-14.0); SEGMENTED NEUTROPHILS % (AUTO) 75.6 % (42-78)
[2020-03-26 21:35] LABS: ALBUMIN 4.8 g/dL (3.5-5.0); ALCOHOL 292 mg/dL (NONE DETECTED); ALKALINE PHOSPHATASE 72 U/L (38-126); ANION GAP 12 (5-19); ASPARTATE AMINO TRANSFERASE 130 U/L (17-59); BILIRUBIN,DIRECT 0.4 mg/dL (0.0-0.4); BILIRUBIN,TOTAL 0.6 mg/dL (0.2-1.3); BLOOD UREA NITROGEN 5 mg/dL (7-20); CALCIUM 8.9 mg/dL (8.4-10.2); CARBON DIOXIDE 25 mmol/L (22-30); CHLORIDE 97 mmol/L (98-107); GLUCOSE 86 mg/dL (75-110); POTASSIUM 4.7 mmol/L (3.6-5.0); TOTAL PROTEIN 7.7 g/dL (6.3-8.2)
--- NOTE | 2020-03-26 22:30 | ER Document Report ---
ED General - General Chief Complaint: Altered Mental Status Stated Complaint: PAIN ALL OVER Time Seen by Provider: 03/26/20 20:15 Primary Care Provider: [facility] [Provider Group] - Follow up as needed Mode of Arrival: Wheelchair TRAVEL OUTSIDE OF THE [place] IN LAST 30 DAYS: No - HPI Notes: Patient is a 69 y/o male with a history of hypertension who was brought in by EMS after being found down by dumpster. Patient states he was at a friend's house drinking and had "2 beers" and decided to leave. As he was walking through the [place], he reports he got to the [facility] and began to feel dizzy. He states he laid down, fell asleep and was awoken by EMS. Patient denies any syncopal episode or hitting his head and endorses a resolution of his dizziness. Patient denies any chest pain, shortness of breath, headache, nausea, vomiting, abdominal pain, fever, diarrhea, and any urinary symptoms. Patient states he has not taken his blood pressure medications in the last two days because he has been drinking. He states he normally drinks 3-4 beers a day. - Related Data Allergies/Adverse Reactions: aspirin [Aspirin] Allergy (Intermediate, Verified 03/26/20 20:14) Hives iodine [Iodine] Allergy (Verified 03/26/20 20:14) Past Medical History - General Information source: Patient - Social History Smoking Status: Current Every Day Smoker Frequency of alcohol use: Heavy Drug Abuse: None Family History: Reviewed & Not Pertinent Patient has homicidal ideation: No - Past Medical History Cardiac Medical History: Reports: Hx Coronary Artery Disease, Hx Hypercholesterolemia, Hx Hypertension Denies: Hx Heart Attack Pulmonary Medical History: Denies: Hx Asthma, Hx Bronchitis, Hx COPD, Hx Pneumonia Neurological Medical History: Reports: Hx Seizures - Possibly Renal/ Medical History: Denies: Hx Peritoneal Dialysis GI Medical History: Reports: Hx Gastroesophageal Reflux Disease Musculoskeletal Medical History: Reports Hx Arthritis Past Surgical History: Reports: Hx Orthopedic Surgery - Immunizations Hx Diphtheria, Pertussis, Tetanus Vaccination: Yes Review of Systems - Review of Systems Constitutional: No symptoms reported EENT: No symptoms reported Cardiovascular: No symptoms reported Respiratory: No symptoms reported Gastrointestinal: No symptoms reported Genitourinary: No symptoms reported Male Genitourinary: No symptoms reported Musculoskeletal: No symptoms reported Skin: No symptoms reported Hematologic/Lymphatic: No symptoms reported Neurological/Psychological: See HPI Physical Exam - Vital signs Vitals: Temp Pulse Resp BP Pulse Ox 97.9 F 72 20 174/110 H 98 03/26/20 18:32 03/26/20 18:32 03/26/20 18:32 03/26/20 18:32 03/26/20 18:32 - Notes Notes: PHYSICAL EXAMINATION: VITALS: Vitals reviewed. Patient is hypertensive at 174/110. VS otherwise within normal limits. GENERAL: Disheveled with alcohol odored breath and in no acute distress. HEAD: Atraumatic, normocephalic. EYES: Pupils equal round and reactive to light, extraocular movements intact, sclera anicteric, conjunctiva are normal. ENT: nares patent, oropharynx clear without exudates. Moist mucous membranes. NECK: Normal range of motion, supple without lymphadenopathy. LUNGS: Breath sounds clear to auscultation bilaterally and equal. No wheezes rales or rhonchi. HEART: Regular rate and rhythm without murmurs. ABDOMEN: Soft, nontender, normoactive bowel sounds. No guarding, no rebound. No masses appreciated. EXTREMITIES: Normal range of motion, no pitting or edema. No cyanosis. NEUROLOGICAL: No focal neurological deficits. Moves all extremities spontaneously and on command. PSYCH: Normal mood, normal affect. SKIN: Warm, Dry, normal turgor, no rashes or lesions noted. Course - Re-evaluation Re-evalutation: Patient is a 69 y/o male with a hx of HTN who was brought in by EMS after being found on the ground by a dumpster. Patient had been drinking and was walking when he began to feel dizzy. Patient states he laid down by the dumpter and fell asleep until he was awoken by EMS. He denies any loss of consciousness and denies hitting his head. On exam, head is atraumatic with no signs of injury. BP is 174/110 but patient has not taken his antihypertensives in two days as he has been drinking. Patient is asymptomatic. WBC, RBC and HBG are mildly low but not concerning. AST is elevated at 130 and ALT is elevated at 60 which is consistent with his heavy drinking. Serum alcohol is 292. 1L of NS ordered. 03/26/20 23:52 Patient re-assessed. He denies any symptoms and his blood pressure is 147/103. I asked how he would be getting home and he states his sister could come pick him up. Patient will be discharged home once he is clinically sober. 03/27/20 02:31 Sister agreed to come brass pickler the patient. Patient was monitored in the emergency department until they were clinically sober. Able to ambulate and talking clear sentences prior to discharge. Tolerating oral intake without difficulty. The patient has been instructed to seek help for alcohol detoxification. Will discharge and return precautions and follow-up recommendations. - Vital Signs Vital signs: Temp Pulse Resp BP Pulse Ox 97.7 F 72 17 139/96 H 95 03/27/20 03:01 03/26/20 18:32 03/27/20 03:01 03/27/20 03:01 03/27/20 03:01 - Laboratory Result Diagrams: 03/26/20 20:53 03/26/20 20:53 Laboratory results interpreted by me: 03/26/20 03/26/20 20:53 20:53 WBC 3.8 L RBC 3.93 L Hgb 13.2 L MCV 98 H MCH 33.5 H RDW 14.1 H Sodium 133.7 L Chloride 97 L BUN 5 L AST 130 H ALT 60 H - EKG Interpretation by Me Additional EKG results interpreted by me: Normal sinus with a rate of 76. QTc 419. Normal axis. No T wave inversions or ST segment changes in consecutive leads. Discharge - Discharge Clinical Impression: Alcohol intoxication Qualifiers: Complication of substance-induced condition: uncomplicated Qualified Code(s): F10.920 - Alcohol use, unspecified with intoxication, uncomplicated Condition: Stable Disposition: HOME, SELF-CARE Additional Instructions: You were seen in the emergency department today for being drunk. Being seen in the emergency department after drinking alcohol is a serious indicator that you have a problem with alcohol. You should seek help with the attached resources for your problem drinking. Please return to the emergency room immediately if you experience any concerning symptoms including high fevers, severe headache, chest pain, difficulty breathing, abdominal pain, slurred speech, numbness or weakness in your arms or legs, or any other symptom that concerns you. Referrals: [facility] [Provider Group] - Follow up as needed
[2020-03-26] MEDS ORDERED: NORMAL SALINE 1000 ML 1,000 ML IV ONE (22:34)
[2020-03-27 00:33] LABS: APPEARANCE,URINE CLEAR; BILIRUBIN,URINE NEGATIVE (NEGATIVE); COLOR,URINE COLORLESS; GLUCOSE, URINE NEGATIVE (NEGATIVE); KETONES,URINE NEGATIVE (NEGATIVE); LEUKOCYTE ESTERASE,URINE NEGATIVE (NEGATIVE); NITRITE,URINE NEGATIVE (NEGATIVE); PROTEIN,URINE NEGATIVE (NEGATIVE); URINE SPECIFIC GRAVITY 1.002; UROBILINOGEN,URINE NEGATIVE mg/dL (<2.0)
[2020-03-27 03:16] VITALS: BP 139/96
--- NOTE | 2020-03-27 08:36 | EKG REPORT ---
SEVERITY:- ABNORMAL ECG - ACCELERATED JUNCTIONAL RHYTHM LEFT VENTRICULAR HYPERTROPHY : Confirmed by: Carola Gaines MD 27-Mar-2020 08:35:42
== END 2020-03-27 03:16 | disposition home or self-care (01) ==
LOC: ER 18:24
DX: F10.920 Alcohol use, unspecified with intoxication, uncomplicated (principal); R41.82 Altered mental status, unspecified; M79.10 Myalgia, unspecified site; R42 Dizziness and giddiness; Y90.8 Blood alcohol level of 240 mg/100 ml or more; F17.200 Nicotine dependence, unspecified, uncomplicated; I25.10 Atherosclerotic heart disease of native coronary artery without angina pectoris; E78.00 Pure hypercholesterolemia, unspecified; I10 Essential (primary) hypertension; Z88.6 Allergy status to analgesic agent
CPT/HCPCS: 93005; 99284; 96360; 36415; 80307; 85025; 80053; 81001; 84484; 93010; A9270; J7030

== ENCOUNTER 2020-04-13 13:17 | Emergency (ER) | payer MEDICARE, MEDICAID ==
--- NOTE | 2020-04-13 13:35 | ER Document Report ---
ED Medical Screen (RME) - General Chief Complaint: Flank Pain Stated Complaint: LEFT HIP PAIN Time Seen by Provider: 04/13/20 13:30 Mode of Arrival: Wheelchair Information source: Patient Notes: Patient presents complaining of left lower rib pain. Patient denies any recent injury. Patient states he does have occasional dysuria. Patient states the pain is been present for about a week. Patient poor historian. I have greeted and performed a rapid initial assessment of this patient. A comprehensive ED assessment and evaluation of the patient, analysis of test results and completion of the medical decision making process will be conducted by additional ED providers. TRAVEL OUTSIDE OF THE [place] IN LAST 30 DAYS: No - Related Data Allergies/Adverse Reactions: aspirin [Aspirin] Allergy (Intermediate, Verified 03/26/20 20:14) Hives iodine [Iodine] Allergy (Verified 03/26/20 20:14) Past Medical History - Social History Family history: None - Past Medical History Cardiac Medical History: Reports: Hx Coronary Artery Disease, Hx Hypercholesterolemia, Hx Hypertension Denies: Hx Heart Attack Pulmonary Medical History: Denies: Hx Asthma, Hx Bronchitis, Hx COPD, Hx Pneumonia Neurological Medical History: Reports: Hx Seizures - Possibly Renal/ Medical History: Denies: Hx Peritoneal Dialysis GI Medical History: Reports: Hx Gastroesophageal Reflux Disease Musculoskeltal Medical History: Reports Hx Arthritis Past Surgical History: Reports: Hx Orthopedic Surgery - Immunizations Hx Diphtheria, Pertussis, Tetanus Vaccination: Yes Physical Exam - Vital signs Vitals: Temp Pulse Resp BP Pulse Ox 98.6 F 72 18 167/104 H 97 04/13/20 13:25 04/13/20 13:25 04/13/20 13:25 04/13/20 13:25 04/13/20 13:25 - Back Back: CVA tenderness - Left Course - Vital Signs Vital signs: Temp Pulse Resp BP Pulse Ox 98.6 F 72 18 167/104 H 97 04/13/20 13:25 04/13/20 13:25 04/13/20 13:25 04/13/20 13:25 04/13/20 13:25
[2020-04-13 14:20] LABS: ABSOLUTE EOSINOPHILS # (AUTO) 0.1 10^3/uL (0.0-0.6); ABSOLUTE LYMPHOCYTES (AUTO) 0.8 10^3/uL (0.5-4.7); ABSOLUTE MONOCYTES (AUTO) 0.2 10^3/uL (0.1-1.4); ABSOLUTE NEUT (AUTO) 1.4 10^3/uL (1.7-8.2); BASOPHILS % (AUTO) 1.1 % (0-2); EOSINOPHILS % (AUTO) 3.3 % (0-6); HEMATOCRIT 38.9 % (37.9-51.0); HEMOGLOBIN 13.6 g/dL (13.5-17.0); LYMPHOCYTES % (AUTO) 32.7 % (13-45); MEAN CORPUSCULAR HEMOGLOBIN 34.5 pg (27.0-33.4); MEAN CORPUSCULAR HGB CONC 34.9 g/dL (32.0-36.0); MEAN CORPUSCULAR VOLUME 99 fl (80-97); PLATELET COUNT 322 10^3/uL (150-450); RED BLOOD COUNT 3.94 10^6/uL (4.35-5.55); RED CELL DISTRIBUTION WIDTH 14.3 % (11.5-14.0); SEGMENTED NEUTROPHILS % (AUTO) 54.9 % (42-78); TOTAL CELLS COUNTED % (AUTO) 100 %; WHITE BLOOD COUNT 2.6 10^3/uL (4.0-10.5)
[2020-04-13 14:26] LABS: APPEARANCE,URINE CLEAR; BILIRUBIN,URINE NEGATIVE (NEGATIVE); COLOR,URINE STRAW; GLUCOSE, URINE NEGATIVE (NEGATIVE); KETONES,URINE NEGATIVE (NEGATIVE); LEUKOCYTE ESTERASE,URINE NEGATIVE (NEGATIVE); NITRITE,URINE NEGATIVE (NEGATIVE); PROTEIN,URINE NEGATIVE (NEGATIVE); URINE SPECIFIC GRAVITY 1.002; UROBILINOGEN,URINE NEGATIVE mg/dL (<2.0)
[2020-04-13 14:41] LABS: ALBUMIN 4.8 g/dL (3.5-5.0); ALKALINE PHOSPHATASE 64 U/L (38-126); ANION GAP 14 (5-19); ASPARTATE AMINO TRANSFERASE 107 U/L (17-59); BILIRUBIN,DIRECT 0.3 mg/dL (0.0-0.4); BILIRUBIN,TOTAL 0.5 mg/dL (0.2-1.3); BLOOD UREA NITROGEN 8 mg/dL (7-20); CALCIUM 9.2 mg/dL (8.4-10.2); CARBON DIOXIDE 24 mmol/L (22-30); CHLORIDE 98 mmol/L (98-107); GLUCOSE 81 mg/dL (75-110); POTASSIUM 4.7 mmol/L (3.6-5.0); TOTAL PROTEIN 7.7 g/dL (6.3-8.2)
[2020-04-13 14:53] LABS: ALCOHOL 333 mg/dL (NONE DETECTED)
--- NOTE | 2020-04-13 14:58 | RADIOLOGY REPORT (SQ) ---
EXAM DESCRIPTION: ACUTE ABDOMEN SERIES IMAGES COMPLETED DATE/TIME: 04/13/2020 2:21 pm REASON FOR STUDY: L flank/rib pain COMPARISON: None. NUMBER OF VIEWS: Three views. TECHNIQUE: PA chest, supine abdomen and upright/decubitus abdomen radiographic images acquired. LIMITATIONS: None. FINDINGS: CHEST: Lungs clear of infiltrates. FREE AIR: None. No abnormal gas collections. BOWEL GAS PATTERN: Scattered nondilated small bowel loops with a few air fluid levels. No distended l arge or small bowel loops. CALCIFICATIONS: No suspicious calcifications. HARDWARE: None in the abdomen. SOFT TISSUES: No gross mass or suggestion of organomegaly. BONES: No acute fracture. No worrisome bone lesions. OTHER: No other significant finding. IMPRESSION: NONSPECIFIC BOWEL GAS PATTERN, Scattered nondilated small bowel loops with a few air flu id levels. No acute osseous findings identified. TECHNICAL DOCUMENTATION: JOB ID: [id number] [id number] 2010 [employer]- All Rights Reserved Reading location - IP/workstation name: [email or web address]
--- NOTE | 2020-04-13 18:01 | ER Document Report ---
Entered by NIRAV PEREZ SCRIBE 04/13/20 1707 Acting as scribe for:EUSEBIO HECK MD ED General - General Chief Complaint: Flank Pain Stated Complaint: LEFT HIP PAIN Time Seen by Provider: 04/13/20 13:30 Primary Care Provider: TANVIR MCKEON [Primary Care Provider] - Follow up as needed Mode of Arrival: Wheelchair Information source: Patient Notes: This 69 year old alcoholic male patient presents to the emergency department today with complaints of left lateral side pain for the last few days. He reports that he drinks at least a 12-pack a day. He does not have any rashes. There was no fall or trauma. TRAVEL OUTSIDE OF THE [place] IN LAST 30 DAYS: No - Related Data Allergies/Adverse Reactions: aspirin [Aspirin] Allergy (Intermediate, Verified 04/13/20 13:36) Hives iodine [Iodine] Allergy (Verified 04/13/20 13:36) Past Medical History - General Information source: Patient - Social History Smoking Status: Never Smoker Cigarette use (# per day): No Chew tobacco use (# tins/day): No Frequency of alcohol use: Heavy Drug Abuse: None Lives with: Family Family History: Reviewed & Not Pertinent Patient has homicidal ideation: No - Past Medical History Cardiac Medical History: Reports: Hx Coronary Artery Disease, Hx Hypercholesterolemia, Hx Hypertension Neurological Medical History: Reports: Hx Seizures - Possibly GI Medical History: Reports: Hx Gastroesophageal Reflux Disease Musculoskeletal Medical History: Reports Hx Arthritis Past Surgical History: Reports: Hx Orthopedic Surgery - Immunizations Hx Diphtheria, Pertussis, Tetanus Vaccination: Yes Review of Systems - Review of Systems Constitutional: No symptoms reported EENT: No symptoms reported Cardiovascular: No symptoms reported Respiratory: No symptoms reported Gastrointestinal: No symptoms reported Genitourinary: No symptoms reported Male Genitourinary: No symptoms reported Musculoskeletal: See HPI, Muscle pain Skin: No symptoms reported Hematologic/Lymphatic: No symptoms reported Neurological/Psychological: No symptoms reported -: Yes All other systems reviewed and negative Physical Exam - Vital signs Vitals: Temp Pulse Resp BP Pulse Ox 98.6 F 72 18 167/104 H 97 04/13/20 13:25 04/13/20 13:25 04/13/20 13:25 04/13/20 13:25 04/13/20 13:25 - Notes Notes: Physical Exam: General: Alert, sleeping comfortably, pleasantly intoxicated. HEENT: Normocephalic. Atraumatic. PERRL. Extraocular movements intact. Oropharynx clear. Neck: Supple. Non-tender. Respiratory: No respiratory distress. Clear and equal breath sounds bilaterally. Cardiovascular: Regular rate and rhythm. Abdominal: Normal Inspection. Non-tender. No distension. Normal Bowel Sounds. Back: No gross abnormalities. Extremities: Moves all four extremities. Upper extremities: Normal inspection. Normal ROM. Lower extremities: Tenderness to palpation over the left anterior iliac spine. No rash. Neurological: Normal cognition. AAOx4. Normal speech. Psychological: Normal affect. Normal Mood. Skin: Warm. Dry. Normal color. No rash or blistering. Course - Re-evaluation Re-evalutation: 04/13/20 17:14 Patient's EtOH level was 333, patient states he drinks 12 beers on a daily basis. When I explained to him how many beers and alcohol level 333 equals 2 in his system at this moment, he seemed quite surprised. Reviewing multiple visits over the years, he generally has alcohol levels in the mid 200s to mid 300s. - Vital Signs Vital signs: Temp Pulse Resp BP Pulse Ox 98.6 F 72 18 167/104 H 97 04/13/20 13:25 04/13/20 13:25 04/13/20 13:25 04/13/20 13:25 04/13/20 13:25 - Laboratory Result Diagrams: 04/13/20 13:50 04/13/20 13:50 Laboratory results interpreted by me: 04/13/20 04/13/20 13:50 13:50 WBC 2.6 L RBC 3.94 L MCV 99 H MCH 34.5 H RDW 14.3 H Absolute Neuts (auto) 1.4 L Sodium 136.2 L AST 107 H ALT 76 H Serum Alcohol 333 H* - Diagnostic Test Radiology reviewed: Image reviewed, Reports reviewed - Acute abdominal series shows nonspecific bowel gas pattern, scattered nondilated loops of small bowel with a few air-fluid levels. Discharge - Discharge Clinical Impression: Left hip pain Acute alcohol intoxication Qualifiers: Complication of substance-induced condition: uncomplicated Qualified Code(s): F10.920 - Alcohol use, unspecified with intoxication, uncomplicated Abdominal pain Qualifiers: Abdominal location: left lower quadrant Qualified Code(s): R10.32 - Left lower quadrant pain Condition: Stable Disposition: HOME, SELF-CARE Additional Instructions: Acute Alcohol Intoxication Your evaluation revealed very high levels of alcohol. You can from drinking a large amount of alcohol rapidly! Further, there's the risk of falls, traffic accidents, and fights. A high portion (about 50 percent) of the serious injuries seen in hospital emergency rooms are caused by alcohol. Alcohol overdosage is usually due to an underlying emotional or psychiatric problem. You may benefit from counselling. If "binge" drinking is an ongoing problem for you, or if you drink ANY AMOUNT of alcohol EVERY day, you most likely have a tendency to alcoholism. You should avoid alcohol totally. We can refer you for treatment. Persons with alcohol problems are often also prone to other addictions -- you should discuss any use of medications or drugs with the doctor. You should be watched at home for the next several hours by someone who has not been drinking. Get extra fluids for the next 24 hours. Call the doctor if there is repeated vomiting, increasing headache, decreasing level of alertness, or any other worsening. Abdominal Pain There are many causes of abdominal pain. Pain can mean a serious problem requiring surgery (such as appendicitis). It can also be an innocent problem that goes away on its own (such as a viral infection). Often, time must pass to determine the cause of pain. The physician does not feel that hospitalization is necessary, at present. Things may change within the next 24 hours. Call the doctor or come back for re- examination if any problems occur, such as: (1) Pain that becomes more severe, steady, or becomes concentrated in one specific area. Also, pain that is more severe with movement or coughing. (2) Vomiting that persists or becomes more frequent. (3) Blood in the vomitus, urine, or bowel movements. Blood in the stool may have a tarry or black appearance. (4) Shaking chills or fever greater than 100 degrees F. (5) The abdomen becomes more distended or swollen. (6) Bowel movements cease. (7) Failure to improve as expected. Your pain seems to be coming from the left lower abdomen going over the hip vahe ne. This may be from a fall, contusion, or muscle strain. There is no evidence of an acute intra-abdominal problem at this time. Your alcohol level was 333 mg percent which is the equivalent of approximately seventeen 12 ounce beers in your system at one time. You are obviously drinking much more than a 12 pack a day. At this time taking nonsteroidal anti-inflammatory medication such as ibuprofen would be unwise due to risk of ulcers. Taking Tylenol would be unwise due to risk of further injury to your liver. Taking narcotic pain medication would be unwise due to risks of fall and injury due to your chronic alcohol intoxication. You will most likely need to rest and try to avoid activity that make the pain worse and give it time to heal. You should follow-up with a local medical doctor if you are not improving over the next several days. RETURN TO THE EMERGENCY ROOM IF ANY NEW OR WORSENING SYMPTOMS. Referrals: LOCALMD,NO [Primary Care Provider] - Follow up as needed I personally performed the services described in the documentation, reviewed and edited the documentation which was dictated to the scribe in my presence, and it accurately records my words and actions.
[2020-04-13 19:12] VITALS: BP 153/103
== END 2020-04-13 18:50 | disposition home or self-care (01) ==
LOC: ER 13:17
DX: R10.32 Left lower quadrant pain (principal); M25.552 Pain in left hip; M79.10 Myalgia, unspecified site; F10.120 Alcohol abuse with intoxication, uncomplicated; Y90.8 Blood alcohol level of 240 mg/100 ml or more; I25.10 Atherosclerotic heart disease of native coronary artery without angina pectoris; I10 Essential (primary) hypertension; Z88.8 Allergy status to other drugs, medicaments and biological substances
CPT/HCPCS: 36415; 74022; 80053; 80307; 81001; 85025; 99284

== ENCOUNTER 2020-05-09 17:09 | Emergency (ER) | payer MEDICARE, MEDICAID ==
--- NOTE | 2020-05-09 18:28 | ER Document Report ---
ED Medical Screen (RME) - General Stated Complaint: FALL-SYNCOPE Time Seen by Provider: 05/09/20 18:20 Primary Care Provider: TANVIR MCKEON [Primary Care Provider] - Follow up as needed Mode of Arrival: Wheelchair Information source: Patient, Relative Notes: Patient presents complaining of syncope this afternoon. Patient reports left hip pain. Patient reports some nausea and shortness of breath. Patient denies any chest pain at this time. Patient does have underlying history of hypertension. Patient has been drinking alcohol today and states he drinks daily I have greeted and performed a rapid initial assessment of this patient. A comprehensive ED assessment and evaluation of the patient, analysis of test results and completion of the medical decision making process will be conducted by additional ED providers. TRAVEL OUTSIDE OF THE [place] IN LAST 30 DAYS: No - Related Data Allergies/Adverse Reactions: aspirin [Aspirin] Allergy (Intermediate, Verified 04/13/20 13:36) Hives iodine [Iodine] Allergy (Verified 04/13/20 13:36) Past Medical History - Social History Family history: None - Past Medical History Cardiac Medical History: Reports: Hx Coronary Artery Disease, Hx Hypercholesterolemia, Hx Hypertension Denies: Hx Heart Attack Pulmonary Medical History: Denies: Hx Asthma, Hx Bronchitis, Hx COPD, Hx Pneumonia Neurological Medical History: Reports: Hx Seizures - Possibly Renal/ Medical History: Denies: Hx Peritoneal Dialysis GI Medical History: Reports: Hx Gastroesophageal Reflux Disease Musculoskeltal Medical History: Reports Hx Arthritis Past Surgical History: Reports: Hx Orthopedic Surgery - Immunizations Hx Diphtheria, Pertussis, Tetanus Vaccination: Yes Physical Exam - Vital signs Vitals: Temp Pulse Resp BP Pulse Ox 98.9 F 67 20 166/109 H 99 05/09/20 17:32 05/09/20 17:32 05/09/20 17:32 05/09/20 17:32 05/09/20 17:32 - Respiratory Respiratory status: No respiratory distress Breath sounds: Normal - Cardiovascular Rhythm: Regular Heart sounds: S1 appreciated, S2 appreciated Course - Vital Signs Vital signs: Temp Pulse Resp BP Pulse Ox 98.9 F 67 20 166/109 H 99 05/09/20 17:32 05/09/20 17:32 05/09/20 17:32 05/09/20 17:32 05/09/20 17:32 Doctor's Discharge - Discharge Referrals: LOCALMD,NO [Primary Care Provider] - Follow up as needed
[2020-05-09 18:57] LABS: APPEARANCE,URINE CLEAR; BILIRUBIN,URINE NEGATIVE (NEGATIVE); COLOR,URINE STRAW; GLUCOSE, URINE NEGATIVE (NEGATIVE); KETONES,URINE NEGATIVE (NEGATIVE); LEUKOCYTE ESTERASE,URINE NEGATIVE (NEGATIVE); NITRITE,URINE NEGATIVE (NEGATIVE); PROTEIN,URINE NEGATIVE (NEGATIVE); URINE SPECIFIC GRAVITY 1.003; UROBILINOGEN,URINE NEGATIVE mg/dL (<2.0)
[2020-05-09 19:14] LABS: URINE AMPHETAMINES SCREEN NEGATIVE; URINE BARBITURATES SCREEN NEGATIVE; URINE BENZODIAZEPINES SCREEN NEGATIVE; URINE COCAINE SCREEN NEGATIVE; URINE MARIJUANA (THC) SCREEN NEGATIVE; URINE METHADONE SCREEN NEGATIVE; URINE PHENCYCLIDINE SCREEN NEGATIVE
--- NOTE | 2020-05-09 19:19 | RADIOLOGY REPORT (SQ) ---
EXAM DESCRIPTION: CHEST SINGLE VIEW IMAGES COMPLETED DATE/TIME: 05/09/2020 7:08 pm REASON FOR STUDY: syncope COMPARISON: 07/14/2019 EXAM PARAMETERS: NUMBER OF VIEWS: One view. TECHNIQUE: Single frontal radiographic view of the chest acquired. RADIATION DOSE: NA LIMITATIONS: None. FINDINGS: LUNGS AND PLEURA: No opacities, masses or pneumothorax. No pleural effusion. MEDIASTINUM AND HILAR STRUCTURES: No masses. Contour normal. HEART AND VASCULAR STRUCTURES: Heart normal in size. Normal vasculature. BONES: No acute findings. HARDWARE: None in the chest. OTHER: No other significant finding. IMPRESSION: NO ACUTE RADIOGRAPHIC FINDING IN THE CHEST. TECHNICAL DOCUMENTATION: JOB ID: [id number] 2010 [employer]- All Rights Reserved Reading location - IP/workstation name: [email or web address]
--- NOTE | 2020-05-09 19:21 | RADIOLOGY REPORT (SQ) ---
EXAM DESCRIPTION: HIP LEFT AP/LATERAL IMAGES COMPLETED DATE/TIME: 05/09/2020 7:08 pm REASON FOR STUDY: syncope, L hip pain COMPARISON: 09/22/2018 NUMBER OF VIEWS: Two views. TECHNIQUE: AP and frog-leg view of the left hip. LIMITATIONS: None. FINDINGS: MINERALIZATION: Normal. LEFT HIP: Joint space narrowing and subchondral sclerosis. No acute fracture or dislocation. OPPOSITE HIP: Joint space narrowing, subchondral sclerosis and subchondral cyst. SOFT TISSUES: No findings. OTHER: Probable postsurgical changes in the left ilium with prominent exostosis. 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 No acute fracture or dislocation. TECHNICAL DOCUMENTATION: JOB ID: [id number] 2010 [employer]- All Rights Reserved Reading location - IP/workstation name: [email or web address]
--- NOTE | 2020-05-09 19:38 | EKG REPORT ---
SEVERITY:- ABNORMAL ECG - SINUS RHYTHM PROBABLE LVH WITH SECONDARY REPOL ABNRM : Confirmed by: Fabio Dutton MD 09-May-2020 19:38:05
[2020-05-09 19:50] LABS: HEMATOCRIT 37.2 % (37.9-51.0); HEMOGLOBIN 12.6 g/dL (13.5-17.0); MEAN CORPUSCULAR HEMOGLOBIN 33.7 pg (27.0-33.4); MEAN CORPUSCULAR VOLUME 99 fl (80-97); PLATELET COUNT 256 10^3/uL (150-450); RED BLOOD COUNT 3.75 10^6/uL (4.35-5.55); RED CELL DISTRIBUTION WIDTH 13.6 % (11.5-14.0); WHITE BLOOD COUNT 3.7 10^3/uL (4.0-10.5)
[2020-05-09 20:04] LABS: ABSOLUTE LYMPHOCYTES# (MANUAL) 1.4 10^3/uL (0.5-4.7); ABSOLUTE MONOCYTES # (MANUAL) 0.1 10^3/uL (0.1-1.4); BASOPHILS % (MANUAL) 0 % (0-2); EOSINOPHILS % (MANUAL) 3 % (0-6); LYMPHOCYTES % (MANUAL) 37 % (13-45); MONOCYTES % (MANUAL) 4 % (3-13); SEGMENTED NEUTROPHILS % (MAN) 55 % (42-78); TOTAL CELLS COUNTED 100
[2020-05-09 20:05] LABS: OVALOCYTES SLIGHT; PLATELET COMMENT ADEQUATE; POIKILOCYTOSIS SLIGHT
[2020-05-09 20:09] LABS: ALBUMIN 4.6 g/dL (3.5-5.0); ALKALINE PHOSPHATASE 56 U/L (38-126); ANION GAP 14 (5-19); ASPARTATE AMINO TRANSFERASE 156 U/L (17-59); BILIRUBIN,DIRECT 0.1 mg/dL (0.0-0.4); BILIRUBIN,TOTAL 0.6 mg/dL (0.2-1.3); BLOOD UREA NITROGEN 10 mg/dL (7-20); CALCIUM 9.4 mg/dL (8.4-10.2); CARBON DIOXIDE 24 mmol/L (22-30); CHLORIDE 94 mmol/L (98-107); GLUCOSE 82 mg/dL (75-110); POTASSIUM 4.5 mmol/L (3.6-5.0); TOTAL PROTEIN 7.7 g/dL (6.3-8.2)
[2020-05-09 20:20] LABS: ALCOHOL 390 mg/dL (NONE DETECTED)
--- NOTE | 2020-05-09 20:40 | RADIOLOGY REPORT (SQ) ---
EXAM DESCRIPTION: CT HEAD WITHOUT IV CONTRAST COMPLETED DATE/TME: 05/09/2020 19:22 CLINICAL HISTORY: 69 years, Male, altered mental status COMPARISON: CT from 03/05/2020 and 03/13/2016. TECHNIQUE: Axial images without IV contrast. Sagittal coronal reconstruction. This exam was performed according to our departmental dose-optimization program, which includes automated exposure control, adjustment of the mA and/or kV according to patient size and/or use of iterative reconstruction technique. Images stored on PACS. FINDINGS: Mild central and cortical atrophy. No acute intra-axial or extra-axial abnormalities. Empty sella. Chronic left frontal sinus disease possibly mucocele formation or other chronic process. Associated surgical clips in the scalp.. No acute sinus abnormality. Mastoid air cells and bony calvarium are unremarkable. IMPRESSION: 1. 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 2. No acute intracranial abnormalities.
--- NOTE | 2020-05-09 23:57 | ER Document Report ---
ED General - General Chief Complaint: Probable Seizure Stated Complaint: FALL-SYNCOPE Time Seen by Provider: 05/09/20 18:20 Primary Care Provider: TANVIR MCKEON [NO LOCAL MD] - Follow up as needed Mode of Arrival: Wheelchair TRAVEL OUTSIDE OF THE [place] IN LAST 30 DAYS: No - Related Data Allergies/Adverse Reactions: aspirin [Aspirin] Allergy (Intermediate, Verified 04/13/20 13:36) Hives iodine [Iodine] Allergy (Verified 04/13/20 13:36) Past Medical History - General Information source: Patient, Relative - Social History Smoking Status: Never Smoker Frequency of alcohol use: 12 pack beer a day Drug Abuse: None Family History: Reviewed & Not Pertinent - Past Medical History Cardiac Medical History: Reports: Hx Coronary Artery Disease, Hx Hypercholesterolemia, Hx Hypertension Denies: Hx Heart Attack Pulmonary Medical History: Denies: Hx Asthma, Hx Bronchitis, Hx COPD, Hx Pneumonia Neurological Medical History: Reports: Hx Seizures - Possibly Renal/ Medical History: Denies: Hx Peritoneal Dialysis GI Medical History: Reports: Hx Gastroesophageal Reflux Disease Musculoskeletal Medical History: Reports Hx Arthritis Past Surgical History: Reports: Hx Orthopedic Surgery - Immunizations Hx Diphtheria, Pertussis, Tetanus Vaccination: Yes Physical Exam - Vital signs Vitals: Temp Pulse Resp BP Pulse Ox 98.9 F 67 20 166/109 H 99 05/09/20 17:32 05/09/20 17:32 05/09/20 17:32 05/09/20 17:32 05/09/20 17:32 Course - Vital Signs Vital signs: Temp Pulse Resp BP Pulse Ox 97.5 F 67 16 145/111 H 99 05/10/20 00:24 05/09/20 17:32 05/10/20 00:26 05/10/20 00:24 05/10/20 00:26 - Laboratory Result Diagrams: 05/09/20 19:22 05/09/20 19:22 Laboratory results interpreted by me: 05/09/20 05/09/20 19:22 19:22 WBC 3.7 L RBC 3.75 L Hgb 12.6 L Hct 37.2 L MCV 99 H MCH 33.7 H Sodium 132.3 L Chloride 94 L AST 156 H ALT 84 H Serum Alcohol 390 H* Discharge - Discharge Clinical Impression: Alcohol abuse Alcohol intoxication Qualifiers: Complication of substance-induced condition: uncomplicated Qualified Code(s): F10.920 - Alcohol use, unspecified with intoxication, uncomplicated Syncope Qualifiers: Encounter type: initial encounter Alcoholic hepatitis Qualifiers: Ascites presence: without ascites Qualified Code(s): K70.10 - Alcoholic hepatitis without ascites Condition: Stable Disposition: HOME, SELF-CARE Instructions: Acute Alcohol Intoxication ([facility]), Alcoholic Hepatitis ([facility]), Chronic Alcoholism ([facility]), Syncopal Episode ([facility]) Additional Instructions: Please consider getting help quitting drinking alcohol. Follow-up with your primary care provider this week. If you develop worsening or new concerning symptoms of any sort, return immediately to the emergency department for evaluation. Referrals: LOCALMD,NO [NO LOCAL MD] - Follow up as needed
--- NOTE | 2020-05-10 00:02 | ER Document Report ---
ED General - General Chief Complaint: Probable Seizure Stated Complaint: FALL-SYNCOPE Time Seen by Provider: 05/09/20 18:20 Primary Care Provider: TANVIR MCKEON [NO LOCAL MD] - Follow up as needed Mode of Arrival: Wheelchair TRAVEL OUTSIDE OF THE [place] IN LAST 30 DAYS: No - HPI Notes: Patient is a 69-year-old male that presented to the emergency department for evaluation after syncopal episode. I was initially called into the room as the patient started having some abnormal behavior after CT. He was flailing about, intermittently tachypneic. Patient cannot offer me any real history at that time. He would follow commands. After some time, I was able to more thoroughly interviewed the patient. The patient states that he passed out. He really c annot give me any details about it, states that he really does not truly remember it. He does complain of some pain in his hips. Patient admits to drinking daily for "50 years." I asked him if he has any interest in quitting, the patient states he would like to " happy, and drink until I ." He declines any sort of rehabilitation services. He states he has been eating and drinking normally, states he had 12 beers today. - Related Data Allergies/Adverse Reactions: aspirin [Aspirin] Allergy (Intermediate, Verified 04/13/20 13:36) Hives iodine [Iodine] Allergy (Verified 04/13/20 13:36) Past Medical History - General Information source: Patient, Relative - Social History Smoking Status: Never Smoker Frequency of alcohol use: 12 pack beer a day Drug Abuse: None Family History: Reviewed & Not Pertinent - Past Medical History Cardiac Medical History: Reports: Hx Coronary Artery Disease, Hx Hypercholesterolemia, Hx Hypertension Denies: Hx Heart Attack Pulmonary Medical History: Denies: Hx Asthma, Hx Bronchitis, Hx COPD, Hx Pneumonia Neurological Medical History: Reports: Hx Seizures - Possibly Renal/ Medical History: Denies: Hx Peritoneal Dialysis GI Medical History: Reports: Hx Gastroesophageal Reflux Disease Musculoskeletal Medical History: Reports Hx Arthritis Past Surgical History: Reports: Hx Orthopedic Surgery - Immunizations Hx Diphtheria, Pertussis, Tetanus Vaccination: Yes Review of Systems - Review of Systems Constitutional: No symptoms reported EENT: No symptoms reported Cardiovascular: See HPI Respiratory: No symptoms reported Gastrointestinal: No symptoms reported Genitourinary: No symptoms reported Musculoskeletal: See HPI Skin: No symptoms reported Neurological/Psychological: No symptoms reported Physical Exam - Vital signs Vitals: Temp Pulse Resp BP Pulse Ox 98.9 F 67 20 166/109 H 99 05/09/20 17:32 05/09/20 17:32 05/09/20 17:32 05/09/20 17:32 05/09/20 17:32 - Notes Notes: This is a 69-year-old male who appears his stated age, initially in some distress. He is intermittently tachypneic, flailing about intermittently. He can follow commands. He has good tone. He opens his eyes spontaneously. He intermittently moans. Vital signs reviewed, please refer to chart. Head is normocephalic, atraumatic. Pupils equal round, reactive to light. Neck is supple without meningismus. Heart is regular rate and rhythm. Lungs are clear to auscultation bilaterally. Abdomen is soft, nontender, normoactive bowel sounds throughout. Extremities without cyanosis, clubbing. Posterior calves are nontender. Peripheral pulses are equal. Skin is warm and dry. Repeat neurological exam is performed. Patient is awake, alert, oriented x3. Cranial nerves II - XII are grossly intact without focal neurological deficits, with the exception of some mild slurring of his speech, consistent with alcohol intoxication. Strength is plus 5 out of 5 bilateral upper and lower extremities. Sensation is intact. Reflexes symmetrical. Intact [id number], rapid alternating movements, [id number]. Course - Re-evaluation Re-evalutation: 05/10/20 00:00 Patient presents to the emergency department for evaluation. He was initially seen through triage, laboratory investigations and imaging were ordered. I was called and see the patient more emergently. The patient had altered mental status, but his findings were not consistent with actual seizure activity. It seemed more like pseudoseizures. He was able to follow commands, was able to be redirected. Initial imaging was ordered. Patient was found to have signif icant alcohol intoxication, mild alcoholic hepatitis. The patient was offered help with quitting drinking, he states he is not interested in this at this time. He does have a family member, a sister, who is willing to pick the patient up. Otherwise, I do not have a clear etiology for this patient's syncope other than likely from alcohol intoxication. He has hyponatremia which is likely chronic secondary to potomania. Patient will be discharged home to follow-up closely with primary care. He is to return to the ED with worsening. - Vital Signs Vital signs: Temp Pulse Resp BP Pulse Ox 98.7 F 67 16 138/98 H 100 05/09/20 19:30 05/09/20 17:32 05/09/20 23:31 05/09/20 23:31 05/09/20 23:31 - Laboratory Result Diagrams: 05/09/20 19:22 05/09/20 19:22 Laboratory results interpreted by me: 05/09/20 05/09/20 19:22 19:22 WBC 3.7 L RBC 3.75 L Hgb 12.6 L Hct 37.2 L MCV 99 H MCH 33.7 H Sodium 132.3 L Chloride 94 L AST 156 H ALT 84 H Serum Alcohol 390 H* - Diagnostic Test Radiology reviewed: Image reviewed, Reports reviewed Radiology results interpreted by me: 05/10/20 00:02 Chest X-Ray 05/09/20 18:27 IMPRESSION: NO ACUTE RADIOGRAPHIC FINDING IN THE CHEST. Hip X-Ray 05/09/20 18:27 IMPRESSION: Osteoarthritic changes in both hips. No acute fracture or dislocation. Head CT 05/09/20 19:22 IMPRESSION: 1. 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 2. No acute intracranial abnormalities. - EKG Interpretation by Me Additional EKG results interpreted by me: 05/10/20 00:02 Sinus mechanism with rate of 83 bpm. Normal axis and intervals. Criteria for LVH. Nonspecific ST changes, but no acute ST elevation concerning for infarction. No significant change compared to prior study of March 26, 2020. Discharge - Discharge Clinical Impression: Alcohol abuse Alcohol intoxication Qualifiers: Complication of substance-induced condition: uncomplicated Qualified Code(s): F10.920 - Alcohol use, unspecified with intoxication, uncomplicated Syncope Qualifiers: Encounter type: initial encounter Alcoholic hepatitis Qualifiers: Ascites presence: without ascites Qualified Code(s): K70.10 - Alcoholic hepatitis without ascites Condition: Stable Disposition: HOME, SELF-CARE Instructions: Syncopal Episode ([facility]), Alcoholic Hepatitis ([facility]), Chronic Alcoholism ([facility]), Acute Alcohol Intoxication ([facility]) Additional Instructions: Please consider getting help quitting drinking alcohol. Follow-up with your primary care provider this week. If you develop worsening or new concerning symptoms of any sort, return immediately to the emergency department for evaluation. Referrals: LOCALMD,NO [NO LOCAL MD] - Follow up as needed
[2020-05-10 00:40] VITALS: BP 145/111
== END 2020-05-10 00:40 | disposition home or self-care (01) ==
LOC: ER 17:09
DX: R55 Syncope and collapse (principal); F10.120 Alcohol abuse with intoxication, uncomplicated; K70.10 Alcoholic hepatitis without ascites; J32.1 Chronic frontal sinusitis; M25.551 Pain in right hip; M25.552 Pain in left hip; R06.82 Tachypnea, not elsewhere classified; E87.1 Hypo-osmolality and hyponatremia; I25.10 Atherosclerotic heart disease of native coronary artery without angina pectoris; I10 Essential (primary) hypertension; Z88.8 Allergy status to other drugs, medicaments and biological substances
CPT/HCPCS: 36415; 70450; 71045; 80053; 80307; 81001; 82962; 83735; 84484; 85025; 93005; 93010; 99285

== ENCOUNTER 2020-05-25 11:57 | Emergency (ER) | payer MEDICARE, MEDICAID ==
--- NOTE | 2020-05-25 12:08 | ER Document Report ---
ED General - General Stated Complaint: PSYCH EVAL Time Seen by Provider: 05/25/20 12:02 TRAVEL OUTSIDE OF THE [place] IN LAST 30 DAYS: No - HPI Notes: 69-year-old male with a history of hypertension presents to the ER via EMS stating that he feels like he wants to hurt himself for the last 3 days, no plan to harm himself. Patient does have a couple knives on him that EMS did take. Patient denies any homicidal ideation. Patient reports he has drank a few beers today. He did not take his home blood pressure medication today. Denies any chest pain shortness of breath, nausea vomiting diarrhea, headache, blurred vision, double vision, loss of vision. - Related Data Allergies/Adverse Reactions: aspirin [Aspirin] Allergy (Intermediate, Verified 04/13/20 13:36) Hives iodine [Iodine] Allergy (Verified 04/13/20 13:36) Past Medical History - General Information source: Patient - Social History Smoking Status: Unknown if Ever Smoked Family History: Reviewed & Not Pertinent - Past Medical History Cardiac Medical History: Reports: Hx Coronary Artery Disease, Hx Hypercholesterolemia, Hx Hypertension Denies: Hx Heart Attack Pulmonary Medical History: Denies: Hx Asthma, Hx Bronchitis, Hx COPD, Hx Pneumonia Neurological Medical History: Reports: Hx Seizures - Possibly Renal/ Medical History: Denies: Hx Peritoneal Dialysis GI Medical History: Reports: Hx Gastroesophageal Reflux Disease Musculoskeletal Medical History: Reports Hx Arthritis Past Surgical History: Reports: Hx Orthopedic Surgery - Immunizations Hx Diphtheria, Pertussis, Tetanus Vaccination: Yes Review of Systems - Review of Systems Constitutional: No symptoms reported EENT: No symptoms reported Cardiovascular: No symptoms reported Respiratory: No symptoms reported Gastrointestinal: No symptoms reported Genitourinary: No symptoms reported Male Genitourinary: No symptoms reported Musculoskeletal: No symptoms reported Skin: No symptoms reported Hematologic/Lymphatic: No symptoms reported Neurological/Psychological: See HPI Physical Exam - Vital signs Vitals: Temp Pulse Resp BP Pulse Ox 98 F 86 16 204/119 H 95 05/25/20 12:39 05/25/20 12:39 05/25/20 12:39 05/25/20 12:39 05/25/20 12:39 - Notes Notes: MEDICATIONS: I agree with the patient medications as charted by the RN. ALLERGIES: I agree with the allergies as charted by the RN. PAST MEDICAL HISTORY/PAST SURGICAL HISTORY: Reviewed and agree as charted by RN. SOCIAL HISTORY: Reviewed and agree as charted by RN. FAMILY HISTORY: No significant familial comorbid conditions directly related to patient complaint EXAM: Reviewed vital signs as charted by RN. PHYSICAL EXAMINATION:reviewed vital signs by RN GENERAL: Chronically ill malnourished and in no acute distress. HEAD: Atraumatic, normocephalic. EYES: Pupils equal round and reactive to light, extraocular movements intact, sclera anicteric, conjunctiva are normal. ENT: Nares patent, oropharynx clear without exudates. Moist mucous membranes. NECK: Normal range of motion, supple without lymphadenopathy LUNGS: Breath sounds clear to auscultation bilaterally and equal. No wheezes rales or rhonchi. HEART: Regular rate and rhythm without murmurs ABDOMEN: Soft, nontender, nondistended abdomen. No guarding, no rebound. No masses appreciated. Musculoskeletal: Normal range of motion, no pitting or edema. No cyanosis. NEUROLOGICAL: Cranial nerves grossly intact. Normal speech, normal gait. Normal sensory, motor exams PSYCH: intoxicated SKIN: Warm, Dry, normal turgor, no rashes or lesions noted. Course - Re-evaluation Re-evalutation: 05/25/20 15:05 Afebrile, hypertensive, patient states he has not been taking his home blood pressure medication, has not been filled since March 2020. Patient denies any chest pain or shortness of breath. Patient given IV hydralazine to lower his blood pressure and will start on home medications. CBC negative for leukocytosis, does show anemia, CMP does show slightly elevated creatinine of 1.27, BUN 9, his kidney function waxes and wanes when trending it to previous Cr. will start IV fluids AST 176, ALT 88, this is likely lower than his previous trending liver enzymes. Serum alcohol 365. Mental health will put him on a petition due to his acute alcohol intoxication. Reevaluation of blood pressure after hydralazine and oral medication 140/83. disposition given to Maryan Mcdonald NP at 1750 - Vital Signs Vital signs: Temp Pulse Resp BP Pulse Ox 98 F 86 16 126/76 H 95 05/25/20 12:39 05/25/20 12:39 05/25/20 12:39 05/25/20 16:00 05/25/20 12:39 - Laboratory Result Diagrams: 05/25/20 12:25 05/25/20 12:25 Laboratory results interpreted by me: 05/25/20 05/25/20 12:25 12:25 WBC 3.3 L RBC 3.66 L Hgb 12.3 L Hct 36.4 L MCV 99 H MCH 33.6 H Eosinophils % (Manual) 10 H Creatinine 1.27 H Est GFR (MDRD) Non-Af 56 L AST 176 H ALT 88 H Salicylates < 1.0 L Acetaminophen < 10 L Serum Alcohol 365 H* - EKG Interpretation by Me EKG shows normal: Sinus rhythm Rate: Normal Rhythm: NSR Additional EKG results interpreted by me: 05/25/20 15:05 Heart rate 78. P axis 49, QRS axis 55, T axis 70. Interpreted by ER supervising physician. No STEMI, no ST segment elevations Discharge - Discharge Clinical Impression: Suicidal ideation, Hypertension Condition: Stable Disposition: PSYCH HOSP/UNIT
[2020-05-25 12:43] LABS: HEMATOCRIT 36.4 % (37.9-51.0); HEMOGLOBIN 12.3 g/dL (13.5-17.0); MEAN CORPUSCULAR HEMOGLOBIN 33.6 pg (27.0-33.4); MEAN CORPUSCULAR HGB CONC 33.8 g/dL (32.0-36.0); MEAN CORPUSCULAR VOLUME 99 fl (80-97); PLATELET COUNT 245 10^3/uL (150-450); RED BLOOD COUNT 3.66 10^6/uL (4.35-5.55); RED CELL DISTRIBUTION WIDTH 13.8 % (11.5-14.0); WHITE BLOOD COUNT 3.3 10^3/uL (4.0-10.5)
[2020-05-25 12:49] LABS: APPEARANCE,URINE CLEAR; BILIRUBIN,URINE NEGATIVE (NEGATIVE); COLOR,URINE STRAW; GLUCOSE, URINE NEGATIVE (NEGATIVE); KETONES,URINE NEGATIVE (NEGATIVE); LEUKOCYTE ESTERASE,URINE NEGATIVE (NEGATIVE); NITRITE,URINE NEGATIVE (NEGATIVE); PROTEIN,URINE NEGATIVE (NEGATIVE); URINE SPECIFIC GRAVITY 1.003; UROBILINOGEN,URINE NEGATIVE mg/dL (<2.0)
[2020-05-25 13:05] LABS: ALBUMIN 4.7 g/dL (3.5-5.0); ALKALINE PHOSPHATASE 55 U/L (38-126); ANION GAP 11 (5-19); ASPARTATE AMINO TRANSFERASE 176 U/L (17-59); BILIRUBIN,DIRECT 0.1 mg/dL (0.0-0.4); BILIRUBIN,TOTAL 0.6 mg/dL (0.2-1.3); BLOOD UREA NITROGEN 10 mg/dL (7-20); CALCIUM 9.5 mg/dL (8.4-10.2); CARBON DIOXIDE 27 mmol/L (22-30); CHLORIDE 101 mmol/L (98-107); GLUCOSE 85 mg/dL (75-110); POTASSIUM 4.2 mmol/L (3.6-5.0); TOTAL PROTEIN 7.7 g/dL (6.3-8.2)
[2020-05-25 13:07] LABS: ACETAMINOPHEN < 10 ug/mL (10-30); SALICYLATE < 1.0 mg/dL (2.0-20.0)
[2020-05-25 13:13] LABS: URINE AMPHETAMINES SCREEN NEGATIVE; URINE BARBITURATES SCREEN NEGATIVE; URINE BENZODIAZEPINES SCREEN NEGATIVE; URINE COCAINE SCREEN NEGATIVE; URINE MARIJUANA (THC) SCREEN NEGATIVE; URINE METHADONE SCREEN NEGATIVE; URINE PHENCYCLIDINE SCREEN NEGATIVE
[2020-05-25 13:20] LABS: ALCOHOL 365 mg/dL (NONE DETECTED)
[2020-05-25 13:23] LABS: ABSOLUTE LYMPHOCYTES# (MANUAL) 1.1 10^3/uL (0.5-4.7); ABSOLUTE MONOCYTES # (MANUAL) 0.2 10^3/uL (0.1-1.4); BASOPHILS % (MANUAL) 0 % (0-2); EOSINOPHILS % (MANUAL) 10 % (0-6); LYMPHOCYTES % (MANUAL) 32 % (13-45); MONOCYTES % (MANUAL) 7 % (3-13); RBC MORPHOLOGY COMMENT NORMO-CYTIC/CHROMIC; SEGMENTED NEUTROPHILS % (MAN) 51 % (42-78); TOTAL CELLS COUNTED 100
[2020-05-25 13:24] LABS: PLATELET COMMENT ADEQUATE
--- NOTE | 2020-05-25 13:31 | EKG REPORT ---
SEVERITY:- ABNORMAL ECG - SINUS RHYTHM CONSIDER LEFT VENTRICULAR HYPERTROPHY : Confirmed by: Carola Gaines MD 25-May-2020 13:30:47
[2020-05-25] MEDS ORDERED: NORMAL SALINE 1000 ML 1,000 ML IV ONE (14:59)
[2020-05-25] MEDS ORDERED: HYDRALAZINE HCL INJ/PF 20 MG/1 ML SDV IV ONE (14:59)
[2020-05-25] MEDS ORDERED: LOSARTAN POTASSIUM 50 MG TABLET PO ONE (15:03)
[2020-05-25] MEDS ORDERED: HYDROCHLOROTHIAZIDE 25 MG TABLET PO ONE (15:03)
[2020-05-25] MEDS ORDERED: HALOPERIDOL 5 MG TABLET PO PRN (18:01)
[2020-05-25] MEDS ORDERED: BENZTROPINE MESYLATE 1 MG TABLET PO ONE (18:02)
--- NOTE | 2020-05-25 19:08 | PSYCHOLOGICAL NOTE ---
Psych Note - Psych Note Date seen by psych provider: 05/25/20 Time seen by psych provider: 13:36 Psych Note: [id number] Reason for Consult: suicidal ideations and alcohol use Patient is a 69 year old male who presented to the [facility] ED today via EMS, petitioned for IVC for suicidal ideations and alcohol use. Patient has been seen in the ED multiple times in the past for passive suicidal ideations while intoxicated. Patients alcohol level when admitted to the ED was 365. Patient reports he was drinking until about 0100 this morning and came into the ED because of pain, being frustrated, and due to his nerves. He was a poor historian and unable to report what he was drinking. Patient reports passive suicidal ideations, however denies plan and intent. States he has been having these thoughts for the past 3 days, but states he cannot do it because he has god on his side. Patient is unable to report stressors in his life. He denies history of suicide attempts. Patient reports living with two friends in his trailer and states he has a positive support system at home. Patient was alert and oriented to self, person, place, time and situation. Mood was content and intoxicated with congruent affect. He denied current HI. He reported passive SI without a plan or intent. Patient did not appear to be responding to internal stimuli as evidenced by fair eye contact and answering questions appropriately when addressed. Thought processes are linear and organized. Conversational speech was within normal limits for rate, tone and prosody. Intellectual abilities are estimated to be average. Attention and concentration is fair. Insight, judgment and impulse control were fair as evidenced by patient coming into the ED asking for help and not acting on his passive suicidal ideations. Patient shows future forward goal oriented thinking as he discusses going home and hanging out with his roommates. Patient was intoxicated and under the influence, however engaged fairly appropriately. Clinical Presentation: suicidal ideation without plan or intent; alcohol abuse IVC Criteria per [place] GS 122C Dangerous to others Within the relevant past the individual No has inflicted or attempted to inflict or threatened to inflict serious bodily harm on another AND No that there is a reasonable probability that this conduct will be repeated. OR No has acted in such a way as to create a substantial risk of serious bodily harm to another AND No that there is a reasonable probability that this conduct will be repeated. OR No has engaged in extreme destruction of property AND NO that there is a reasonable probability that this conduct will be repeated. Previous episodes of dangerousness to others, when applicable, may be considered when determining reasonable probability of future dangerous conduct. Clear, cogent, and convincing evidence that an individual has committed a homicide in the relevant past is prima facie evidence of dangerousness to others. Dangerous to self Within the relevant past the individual has done any of the following: acted in such a way as to show ALL of the following: No The individual would be unable without care, supervision, and the continued assistance of others not otherwise available, to exercise self- control, judgment, and discretion in the conduct of the individual's daily responsibilities and social relations or to satisfy the individual's need for nourishment, personal or medical care, care home, or self-protection and safety. AND No There is a reasonable probability of the individual suffering serious physical debilitation within the near future unless adequate treatment is given. A showing of behavior that is grossly irrational, of actions that the individual is unable to control, of behavior that is grossly inappropriate to the situation, or of other evidence of severely impaired insight and judgment shall create a prima facie inference that the individual is unable to care for himself or herself. OR Yes has attempted suicide or threatened suicide Has made passive suicidal ideations, however is under the influence of alcohol; will reassess when sober AND No that there is a reasonable probability of suicide unless adequate treatment is given No, he reports he will not follow through and has "god on his side" OR No has mutilated himself or herself or attempted to mutilate himself or herself AND No that there is a reasonable probability of serious self-mutilation unless adequate treatment is given. NOTE: Previous episodes of dangerousness to self, when applicable, may be considered when determining reasonable probability of physical debilitation, suicide, or self-mutilation. Medication recommendations per [facility] contracted psychiatrist, Dr. Guanaco CARRILLO, are as follows: Haldol 5mg q6prn; and Cogentin only if prn is used Impression\\plan: Patient is currently on a 24 hour petition. He was intoxicated and under the influence during his psychiatric assessment. He will be re- evaluated in the morning when he is sober and able to more appropriately engage with clinician. Patient came to the ED expressing passive suicidal ideations, but denied plan or intent. He has no history of suicide attempts, but reports a history of alcoholism. Patient typically expresses suicidal ideations when intoxicated at the ED, but later denies when sober. Patient will be re- evaluated in the morning by behavioral health when he is sober. If patient is not a danger to himself or others at this time, his petition will be rescinded. Dr. Lott was consulted to care management of this patient; attending physic ians in agreement with recommendations and disposition.
[2020-05-26] MEDS ORDERED: LORAZEPAM 1 MG TABLET PO ONE (05:57)
[2020-05-26] MEDS ORDERED: LOSARTAN POTASSIUM 50 MG TABLET PO ONE (05:57)
--- NOTE | 2020-05-26 11:30 | ER Document Report ---
Doctor's Note Notes: 05/26/20 11:00 PHYSICAL EXAMINATION: GENERAL: Well-appearing and in no acute distress. HEAD: Atraumatic, normocephalic. EYES: sclera anicteric, conjunctiva are normal. ENT: nares patent. Moist mucous membranes. NECK: Normal range of motion, supple without lymphadenopathy LUNGS: CTAB and equal. No wheezes rales or rhonchi. HEART: Regular rate and rhythm without murmurs ABDOMEN: Soft, nontender, normal bowel sounds, no guarding. EXTREMITIES: Normal range of motion, no pitting edema. BACK: No CVA tenderness NEUROLOGICAL: Cranial nerves grossly intact. Normal speech. PSYCH: Normal mood, normal affect. SKIN: Warm, Dry, normal turgor, no rashes or lesions noted Patient resting comfortably at this time, patient appears medically stable for discharge or transfer pending behavioral health team disposition. Patient does have a history of hypertension and history of noncompliance with his medications. Patient was given a dose of his antihypertensive medication this morning. 05/26/20 14:45 Patient has been cleared per behavioral health team and is otherwise stable for discharge at this time.
[2020-05-26] MEDS ORDERED: HYDROCHLOROTHIAZIDE 25 MG TABLET PO ONE (11:31)
--- NOTE | 2020-05-26 13:54 | PSYCHOLOGICAL NOTE ---
Psych Note - Psych Note Date seen by psych provider: 05/26/20 Time seen by psych provider: 10:44 Psych Note: [id number] Re evaluation Patient was admitted to the ED intoxicated and with passive suicidal ideations. Today, patient denies suicidal ideation, plan, or intent. He reports he was drinking a lot of alcohol and sometimes feels more depressed and suicidal when he is intoxicated. Patient reported yesterday, while he was feeling suicidal, he would not kill himself because he had god on his side. Today, patients mood and affect are more appropriate. He presents euthymic and engages appropriately with clinician. IVC Criteria per [place] GS 122C Dangerous to others Within the relevant past the individual No has inflicted or attempted to inflict or threatened to inflict serious bodily harm on another AND No that there is a reasonable probability that this conduct will be repeated. OR No has acted in such a way as to create a substantial risk of serious bodily harm to another AND No that there is a reasonable probability that this conduct will be repeated. OR No has engaged in extreme destruction of property AND NO that there is a reasonable probability that this conduct will be repeated. Previous episodes of dangerousness to others, when applicable, may be considered when determining reasonable probability of future dangerous conduct. Clear, cogent, and convincing evidence that an individual has committed a homicide in the relevant past is prima facie evidence of dangerousness to others. Dangerous to self Within the relevant past the individual has done any of the following: acted in such a way as to show ALL of the following: No The individual would be unable without care, supervision, and the continued assistance of others not otherwise available, to exercise self- control, judgment, and discretion in the conduct of the individual's daily responsibilities and social relations or to satisfy the individual's need for nourishment, personal or medical care, assisted, or self-protection and safety. AND No There is a reasonable probability of the individual suffering serious physical debilitation within the near future unless adequate treatment is given. A showing of behavior that is grossly irrational, of actions that the individual is unable to control, of behavior that is grossly inappropriate to the situation, or of other evidence of severely impaired insight and judgment shall create a prima facie inference that the individual is unable to care for himself or herself. OR Yes has attempted suicide or threatened suicide Has made passive suicidal ideation, however was reassessed when sober and denies suicidal ideation, plan or intent AND No that there is a reasonable probability of suicide unless adequate treatment is given No, he reports he will not follow through and has "god on his side"; no history of attempts OR No has mutilated himself or herself or attempted to mutilate himself or herself AND No that there is a reasonable probability of serious self-mutilation unless adequate treatment is given. NOTE: Previous episodes of dangerousness to self, when applicable, may be considered when determining reasonable probability of physical debilitation, suicide, or self-mutilation. Medication recommendations per [facility]'s contracted psychiatrist are as follows (per 05/25/2020 note): Haldol 5mg q6prn Cogentin 1mg qd Impression\\plan: Patient is cleared from acute psychiatric services. Recommendation to RESCIND 24 Hour Petition for Evaluation. He came into the ED expressive passive suicidal ideations and being intoxicated. Today, no longer under the influence, patient denies suicidal ideation, plan, and intent. He is not a danger to himself. Patient reports he was drinking alcohol and often feels depressed when drinking, which is supported by alcohol being a depressant. Patient was recommended to attend detox/ substance use treatment facilities and was given a community referral list with [facility] highlighted as a local, short term option. Patient wanted his sister to pick him up, however did not have her number and her number was not on file. He was also given referrals for [facility] and [facility] mobile crisis. Patient was informed is he experiences worsening or a significant change in symptoms, notify the physician immediately, utilize mobile crisis, or return to the Emergency Department at any time for re- evaluation. Dr. Lott was consulted on the care and management of this patient; attending physician is in agreement with recommendations and disposition.
[2020-05-26 20:04] VITALS: BP 148/88
== END 2020-05-26 17:30 | disposition home or self-care (01) ==
LOC: ER 11:57
DX: R45.851 Suicidal ideations (principal); F10.920 Alcohol use, unspecified with intoxication, uncomplicated; Z88.8 Allergy status to other drugs, medicaments and biological substances; I25.10 Atherosclerotic heart disease of native coronary artery without angina pectoris; I10 Essential (primary) hypertension
CPT/HCPCS: 93005; 99285; 96361; 96374; 36415; 80307 ×4; 83690; 85025; 80053; 81001; 93010; A9270 ×6; J0360; J7030